=== PATIENT | female | born 1975 | race Caucasian/White ===

== ENCOUNTER 2021-03-09 13:48 | Emergency (ER) | payer MEDICARE ==
[~2021-03-09] VITALS: Ht 172.7 cm; Wt 86.4 kg
[2021-03-09 14:25] LABS: HEMATOCRIT 38.8 % (36.0-47.0); HEMOGLOBIN 12.9 g/dl (12.0-15.5); MEAN CORPUSCULAR HEMOGLOBIN 31.9 pg (27.0-33.0); MEAN CORPUSCULAR HGB CONC 33.2 g/dl (32.0-36.5); PLATELET COUNT, AUTOMATED 259 10^3/uL (150-450); RED BLOOD COUNT 4.04 10^6/uL (4.00-5.40); WHITE BLOOD COUNT 11.7 10^3/uL (4.0-10.0)
[2021-03-09 14:56] LABS: ACETAMINOPHEN LEVEL < 2.0 UG/ML (10.0-30.0); ALBUMIN 3.8 GM/DL (3.2-5.2); ALT/SGPT 41 U/L (12-78); BILIRUBIN,DIRECT 0.2 MG/DL (0.0-0.2); BILIRUBIN,TOTAL 0.5 MG/DL (0.2-1.0); BLOOD UREA NITROGEN 4 MG/DL (7-18); CALCIUM LEVEL 8.7 MG/DL (8.5-10.1); CARBON DIOXIDE LEVEL 24 MEQ/L (21-32); CHLORIDE LEVEL 107 MEQ/L (98-107); CREATININE FOR GFR 0.66 MG/DL (0.55-1.30); ETHYL ALCOHOL (ETHANOL) < 0.003 % (0.000-0.010); GLOMERULAR FILTRATION RATE > 60.0 (>58); GLUCOSE, FASTING 79 MG/DL (70-100); POTASSIUM SERUM 3.4 MEQ/L (3.5-5.1); SODIUM LEVEL 142 MEQ/L (136-145); TOTAL PROTEIN 7.1 GM/DL (6.4-8.2)
[2021-03-09 15:07] VITALS: BP 121/74
[2021-03-09 16:12] LABS: AMPHETAMINES LEVEL URINE NEGATIVE (NEGATIVE); BARBITURATES URINE NEGATIVE (NEGATIVE); BENZODIAZEPINES URINE NEGATIVE (NEGATIVE); CANNABINOIDS URINE POSITIVE (NEGATIVE); COCAINE METABOLITE URINE NEGATIVE (NEGATIVE); METHADONE URINE NEGATIVE (NEGATIVE); OPIATES URINE NEGATIVE (NEGATIVE); PHENCYCLIDINE URINE NEGATIVE (NEGATIVE)
[2021-03-09] MEDS ORDERED: POTASSIUM CHLORIDE 10 MEQ SR TABLET PO ONE (16:25)
[2021-03-09] MEDS ORDERED: BUPR150T5 PO (16:38)
[2021-03-09] MEDS ORDERED: FAMO20TA5 PO (16:38)
[2021-03-09] MEDS ORDERED: LISI10TA22 PO (16:38)
[2021-03-09] MEDS ORDERED: LEXA1TAB PO (17:36)
== END 2021-03-09 18:26 | disposition home or self-care (01) ==
LOC: M ED 13:48
DX: F32.9 Major depressive disorder, single episode, unspecified (principal); F17.200 Nicotine dependence, unspecified, uncomplicated

== ENCOUNTER 2021-04-05 07:35 | Inpatient (IN) | payer MEDICARE ==
[~2021-04-05] VITALS: Ht 172.7 cm; Wt 81.8 kg
[~2021-04-05 07:35] MED LIST: BUPR150T5 PO; FAMO20TA5 PO; LEXA1TAB PO; LISI10TA22 PO
[2021-04-05 08:22] LABS: HEMATOCRIT 38.4 % (36.0-47.0); HEMOGLOBIN 12.3 g/dl (12.0-15.5); MEAN CORPUSCULAR HEMOGLOBIN 31.1 pg (27.0-33.0); PLATELET COUNT, AUTOMATED 279 10^3/uL (150-450); RED BLOOD COUNT 3.96 10^6/uL (4.00-5.40); WHITE BLOOD COUNT 7.6 10^3/uL (4.0-10.0)
[2021-04-05 08:45] LABS: AMPHETAMINES LEVEL URINE NEGATIVE (NEGATIVE); BARBITURATES URINE NEGATIVE (NEGATIVE); BENZODIAZEPINES URINE NEGATIVE (NEGATIVE); CANNABINOIDS URINE POSITIVE (NEGATIVE); COCAINE METABOLITE URINE NEGATIVE (NEGATIVE); METHADONE URINE NEGATIVE (NEGATIVE); OPIATES URINE NEGATIVE (NEGATIVE); PHENCYCLIDINE URINE NEGATIVE (NEGATIVE)
[2021-04-05 08:52] LABS: ACETAMINOPHEN LEVEL 7.8 UG/ML (10.0-30.0); ALBUMIN 3.3 GM/DL (3.2-5.2); ALT/SGPT 44 U/L (12-78); BILIRUBIN,DIRECT < 0.1 MG/DL (0.0-0.2); BILIRUBIN,TOTAL 0.2 MG/DL (0.2-1.0); BLOOD UREA NITROGEN 3 MG/DL (7-18); CALCIUM LEVEL 8.5 MG/DL (8.5-10.1); CARBON DIOXIDE LEVEL 27 MEQ/L (21-32); CHLORIDE LEVEL 106 MEQ/L (98-107); CREATININE FOR GFR 0.48 MG/DL (0.55-1.30); ETHYL ALCOHOL (ETHANOL) < 0.003 % (0.000-0.010); GLOMERULAR FILTRATION RATE > 60.0 (>58); GLUCOSE, FASTING 88 MG/DL (70-100); POTASSIUM SERUM 3.8 MEQ/L (3.5-5.1); SODIUM LEVEL 143 MEQ/L (136-145); TOTAL PROTEIN 6.7 GM/DL (6.4-8.2)
[2021-04-05 08:59] LABS: HCG, SERUM QUALITATIVE NEGATIVE (NEGATIVE)
[2021-04-05] MEDS ORDERED: HOME MED LIST COMPLETE! XX SCH (10:20)
[2021-04-05] MEDS ORDERED: ACETAMINOPHEN TAB 650MG DOSE (2X325MG) PO ONE (11:30)
[2021-04-05] MEDS ORDERED: LORazepam 2 MG TAB PO STA (11:51)
[2021-04-05 13:48] LABS: RSV AMPLIFICATION NEGATIVE (NEGATIVE)
[2021-04-06] MEDS ORDERED: ACETAMINOPHEN TAB 650MG DOSE (2X325MG) PO ONE ×2 (05:10→18:50)
[2021-04-06] MEDS ORDERED: NICOTINE 21MG/24HR 1 EA TRANSDERMAL TD ONE ×2 (09:30→21:15)
[2021-04-07] MEDS ORDERED: NICOTINE 21MG/24HR 1 EA TRANSDERMAL TD ONE (09:25)
[2021-04-07 12:13] LABS: RSV AMPLIFICATION NEGATIVE (NEGATIVE)
[2021-04-07] MEDS ORDERED: MOM 30ML SUSPENSION UDC PO PRN (12:55)
[2021-04-07] MEDS ORDERED: LORazepam 1 MG TAB PO PRN (12:55)
[2021-04-07] MEDS ORDERED: traZODone 50 MG TAB PO PRN (12:55)
[2021-04-07 15:13] VITALS: BP 152/89
[2021-04-07] MEDS: ACETAMINOPHEN TAB 650MG DOSE (2X325MG) PO PRN (21:52)
[2021-04-08 06:00] VITALS: BP 141/84
[2021-04-08] MEDS ORDERED: diphenhydrAMINE 25MG CAP PO SCH (08:50)
--- NOTE | 2021-04-08 09:08 | MHHPEPDOC ---
General Date Of Admission: Apr 07, 2021 Legal Status: 9.39 Chief Complaint ". I was just getting scared and that is why I called the 911 History of Present Illness HISTORY OF THE PRESENT ILLNESS: Patient is a 45 -year-old , female, who [has a history of outpatient treatment for depression but no previous inpatient admission. She was brought to emergency room by police responding to her repeated calls to 911 without any clear emergency. Police found her to be very disorganized pressured and not making any sense and brought to emergency room on Wednesday night and she was admitted on 939 status. The patient apparently called police emergency line repeatedly with the various complaints but the police did not find any evidence of emergency. On examination patient stated that she does not remember calling the police but later admits that she was just feeling scared without any reasons. Patient did admit that she has gone through separation and her moved out about a month ago and she recently stopped taking her antidepressant medicine because she was feeling much better without it. She denies any hallucination or delusional thinking but admits that she sometimes feels scared but during the day she is full of energy and does not seem to need any sleep lately. She has been suffering from degenerative joint disease but lately has been taking CBD oil regularly and is feeling much better and felt like she has all the energy in the word. She denies feeling any grandiosity denies any hallucination and denies any depressed mood but instead reporting elevated mood high energy decreased need for sleep and occasional paranoid fear. She has no history of psychosis denies any history of suicidal attempt but has been on antidepressant medicine since 2010 prescribed by her primary care doctor which she stopped in December.]. Psychiatric Review of Systems Depression (2 or more weeks): denies Natalee (4 or more days of): irritable/elevated mood, expansive mood, decreased need for sleep, talkativity, pressured, flight of ideas, distractibility Psychosis: paranoia PTSD: denies Anxiety: denies Past Psychiatric History Previous Psychiatric Diagnosis: . Depression Previous Psychiatric Admissions: . No previous inpatient treatment Suicide Attempts: . No history of suicidal attempt Psychiatric Follow-up: . Had a psychiatric evaluation in 2010 when she was filing petition for her daughter Psychiatric medications: . Has been on Wellbutrin and Lexapro stopped taking it in December of this year Past Medical History Medical Problems Has chronic degenerative joint disease Head Injury: No Seizures: No Hospitalizations: No Surgeries: No Family Medical/Psychiatric HX Medical Problems Father of esophageal cancer mother has no medical history is very little contact Psychiatric Disorders: No Addiction: Yes (Her 24-year-old daughter has extensive substance abuse history) Suicide Attemps/Completions: No Addiction History denies, other (Has been smoking pot daily also uses CBD oil daily) Social History Childhood: . Born in [facility] uneventful childhood Abuse/Trauma:[Denies any history of trauma]. Current Living Situation: [Lives in a rented a house along after her moved out in November 2020]. Education: [High school]. Employment: Used to work at [employer] but currently on SSD. Social Support: [Neighbors]. Legal: [Denies any legal history]. Marital: [Was for 24 years has 2 daughters ages 24 and 20 started the divorce proceeding in 2019 and her moved out and November or December of this year]. Mental Status Examination General Appearance: appears stated age Build: average Demeanor: average, other ([place] friendly and easily engaging) Eye Contact: average Activity: average Behavior: cooperative, hyperactive, other Speech: clear, rapid, pressured, other ([place] productive and slightly flighty) Mood: euphoric, elevated Mood Reports feeling great since December of this year Thought Process: logical/linear, flight of ideas, racing (Moderately pressured easily distracted) Thought Content (Delusions): denies SI, HI, AVH, paranoia (Occasionally feels scared and paranoid) Thought Content (Other): coherent Thought Content (Aggressive): none reported Perception (Hallucinations): none reported Perception (Other): none reported Cognition (Impairment of): none reported Cognition(Intelligence Est.): average Oriented: Awake, Alert, Oriented times three Insight: poor Judgment: Fair Diagnoses Bipolar disorder manic A-FIB/CHADSVASC A-FIB History Current/History of A-Fib/PAF?: No Current PO Anticoag Therapy: No Age/Risk Factor Scoring CHADSVASC: CHADSVASC Response (Comments) Value Gender Risk Factor Female 1 Hx of CHF No 0 Hx of HTN No 0 Hx of Stroke/TIA/or VTE No 0 Hx of Diabetes No 0 Hx of Vascular Disease No 0 Total 1 Treatment Treatment ordered: NONE Assessment Patient appears to have a manic episode with a significant psychomotor agitation episodes of paranoia and elevated mood and decreased to sleep. She is currently not acutely delusional but appears to have been very paranoid before admission. We will try to stabilize with risperidone at bedtime and supportive therapy Initial Treatment Plan 1. Patient was admitted on a 9.39 status. 2. Complete history was obtained. 3. With patients permission, family will be contacted and database will be expanded. 4. Patients medication regimen will be reviewed and changed accordingly. 5. Patient will be provided with protected environment. 6. Patient will be treated with individual, group, and milieu therapies. 7. Patient will receive supportive psych-education. 8. Discharge planning will commence immediately. 9. Outpatient follow-up treatment will be strongly recommended. 10. The initial treatment plan will focus initially on: * Depression. * Risk for suicide. ESTIMATED LENGTH OF STAY: 3-5 DAYS. TIME SPENT COUNSELING AND COORDINATING INITIAL CARE: 45 minutes. Tobacco Cessation Screen If Patient is a Smoker Non-smoker N/A-No Antipsychotics Vital Signs Vital Signs Date Time Temp Pulse Resp B/P (MAP) Pulse Ox O2 Delivery O2 Flow Rate FiO2 04/08/21 08:12 Room Air 04/08/21 06:00 98.4 72 16 141/84 (103) 95 Laboratory Data 24H Labs Laboratory Tests 2 04/07/21 11:29: Coronavirus (COVID-19)(PCR) NEGATIVE, Influenza Type A (RT-PCR) NEGATIVE, Influenza Type B (RT-PCR) NEGATIVE, Respiratory Syncytial Virus (PCR) NEGATIVE Medications No Active Prescriptions or Reported Meds Allergies Coded Allergies: Sulfa (Sulfonamide Antibiotics) (Verified Allergy, Unknown, Rash, 04/07/21) BLANCO DOWD M.D. Apr 08, 2021 09:08
[2021-04-08] MEDS: NICOTINE 21MG/24HR 1 EA TRANSDERMAL TD SCH (10:16)
[2021-04-08 17:07] VITALS: BP 142/82
[2021-04-08] MEDS: ACETAMINOPHEN TAB 650MG DOSE (2X325MG) PO PRN (20:44)
[2021-04-08] MEDS ORDERED: risperiDONE 2 MG TAB PO SCH (21:00)
[2021-04-09] VITALS (8 sets, daily range): BP systolic 126–160; BP diastolic 77–88
[2021-04-09] MEDS ORDERED: haloperidoL 5 MG TAB PO PRN (08:10)
[2021-04-09] MEDS ORDERED: diphenhydrAMINE 50MG CAP PO PRN (08:10)
[2021-04-09] MEDS: LORazepam 1 MG TAB PO SCH ×3 (09:00→20:32)
[2021-04-09] MEDS ORDERED: NICOTINE 21MG/24HR 1 EA TRANSDERMAL TD SCH (09:00)
[2021-04-09] MEDS: risperiDONE 2 MG TAB PO SCH ×2 (09:00→20:32)
[2021-04-09] MEDS ORDERED: HALOPERIDOL 5MG/ML VIAL (J1630 PER 1) IM STA (09:15)
[2021-04-09] MEDS ORDERED: diphenhydrAMINE 50MG/ML VIAL (J1200) IM STA (09:15)
[2021-04-09] MEDS ORDERED: LORazepam 2 MG/ML VIAL IM STA (09:15)
[2021-04-09] MEDS: NICOTINE 21MG/24HR 1 EA TRANSDERMAL TD SCH (10:06)
--- NOTE | 2021-04-09 10:19 | MHIPNPDOC ---
[facility] Progress Note Progress Note DATE OF SERVICE: 04/09/21 Patient is showing more bizarre and agitated behavior. She did not take prescribed risperidone last night and apparently did not sleep very well. She has been acting quite bizarre this morning and was noted to be laughing and talking to herself. When seen by this MD patient claims that she is feeling good and happy and very evasive and superficial but later becoming more agitated and [id number] and required extra Haldol and Ativan to control her agitation. She appears actively hallucinating and remains extremely labile and agitated and appears to be grossly manic with psychotic symptoms. HISTORY:. VITAL SIGNS: See below. NEW TEST RESULTS:. CURRENT MEDICATIONS: See below. MENTAL STATUS EXAMINATION: Patient is a 45-year old female, who is agitated. Speech: Is pressured. Language skills are poor. Thought processes including: Flighty. Thought content: Feeling happy. Abstract reasoning, and computation: Poor. Description of associations: Disorganized. Description of abnormal or psychotic thoughts: Appears actively hallucinating and paranoid. Judgment: Poor. Insight: Very . poor. Orientation: Appears oriented. Recent and remote memory: No gross impairment. Attention span and concentration: Poor. Language:. Fund of knowledge:. Mood: Happy. Affect: Elevated and agitated. DIAGNOSES: 1.. Bipolar disorder manic with psychosis 2.. 3.. ASSESSMENT: Grossly manic and psychotic MANAGEMENT PLAN: Increase risperidone Ativan 1 mg 3 times daily for agitation consider Depakote or lithium. TIME SPENT: 20 minutes. Vital Signs Vital Signs Date Time Temp Pulse Resp B/P (MAP) Pulse Ox O2 Delivery O2 Flow Rate FiO2 04/09/21 06:27 98.0 85 18 160/87 (111) 99 Room Air Current Medications Current Medications Medications (Trade) Dose Ordered Sig/Yola Route PRN Reason Start Time Stop Time Status Last Admin Dose Admin Acetaminophen (Tylenol Tab) 650 mg Q6HP PRN PO PAIN 04/06/21 16:30 04/08/21 20:44 Al Hydrox/Mg Hydrox/Simethicone (Mylanta) 30 ml Q4HP PRN PO HEARTBURN/INDIGESTION 04/07/21 12:55 Diphenhydramine HCl (Benadryl) 25 mg QHSP PO 04/08/21 08:50 04/09/21 08:27 DC Diphenhydramine HCl (Benadryl) 50 mg Q6HP PRN PO ANXIETY/AGITATION 04/09/21 08:10 Diphenhydramine HCl (Benadryl) 50 mg STAT STAT IM 04/09/21 09:15 04/09/21 09:18 DC 04/09/21 09:27 Haloperidol (Haldol) 5 mg Q6HP PRN PO AGITATION 04/09/21 08:10 Haloperidol (Haldol) 5 mg STAT STAT IM 04/09/21 09:15 04/09/21 09:18 DC 04/09/21 09:27 Home Med (Med Rec Complete!) ASDIRECTED XX 04/05/21 10:20 04/05/21 10:21 DC Ibuprofen (Advil) 400 mg Q6HP PRN PO MODERATE PAIN (PS 5-7) 04/07/21 12:55 Lorazepam (Ativan) 1 mg Q6HP PRN PO ANXIETY/AGITATION 04/07/21 12:55 Lorazepam (Ativan) 1 mg STAT STAT IM 04/09/21 09:15 04/09/21 09:18 DC 04/09/21 09:27 Lorazepam (Ativan) 2 mg STAT STAT PO 04/05/21 11:51 04/05/21 11:52 DC Magnesium Hydroxide (Milk Of Magnesia) 30 ml DAILYPRN PRN PO CONSTIPATION 04/07/21 12:55 Nicotine (Nicoderm Cq 21mg) 1 patch DAILY TD 04/08/21 09:00 04/09/21 10:06 Nicotine (Nicoderm Cq 21mg) 1 patch DAILY TD 04/09/21 09:00 04/08/21 10:10 DC Risperidone (RisperDAL) 2 mg BID PO 04/09/21 21:00 UNV Risperidone (RisperDAL) 2 mg QHS PO 04/08/21 21:00 04/09/21 10:13 DC Trazodone HCl (Desyrel) 50 mg QHSP PRN PO INSOMNIA 04/07/21 12:55 Cancel Allergies Coded Allergies: Sulfa (Sulfonamide Antibiotics) (Verified Allergy, Unknown, Rash, 04/07/21) BLANCO DOWD M.D. Apr 09, 2021 10:19
--- NOTE | 2021-04-09 14:20 | HPEPDOC ---
General Date of Admission Apr 07, 2021 at 12:53 Date of Service: Apr 09, 2021 Chief Complaint The patient is a 45-year-old female admitted with a reason for visit of Psychotic Disorder. History of Present Illness 45-year-old female past medical history of orbit obesity status post gastric bypass surgery, depression was admitted to [facility] for unspecified psychotic disorder. She has been examined here today for medical history and physical. This morning she was very agitated and had a code 25 called requiring restraints both physical and chemical but now she is off restraints and alert and cooperative. She denies any complaints today. Home Medications No Active Prescriptions or Reported Meds Allergies Coded Allergies: Sulfa (Sulfonamide Antibiotics) (Verified Allergy, Unknown, Rash, 04/07/21) Past Medical History Medical History Morbid obesity status post gastric bypass surgery in 2018 weight loss of about 100 pounds History of hypertension not on any medications at present Depression Family History Significant Family History: Cancer (Father had esophageal cancer), Diabetes, Heart disease Social History * Smoker: current smoker Alcohol: rarely Drugs: marijuana A-FIB/CHADSVASC A-FIB History Current/History of A-Fib/PAF?: No Age/Risk Factor Scoring CHADSVASC: CHADSVASC Response (Comments) Value Gender Risk Factor Female 1 Hx of CHF No 0 Hx of HTN No 0 Hx of Stroke/TIA/or VTE No 0 Hx of Diabetes No 0 Hx of Vascular Disease No 0 Total 1 Review of Systems Constitutional: Denies: Chills, Fever, Night Sweats Eyes: Denies: Pain, Vision change ENT: Denies: Head Aches, Ear Pain, Dysphagia Skin: Denies: Rash, Lesions, Breakdown Pulmonary: Denies: Dyspnea, Cough Cardiovascular: Denies: Chest Pain, Palpitations, Orthopnea, Paroxysmal Noc. Dyspnea, Lt Headedness Gastrointestinal: Denies: Nausea, Vomiting, Abdominal Pain, Diarrhea Genitourinary: Denies: Dysuria, Frequency, Incontinence, Retention Musculoskeletal: Denies: Neck Pain, Back Pain, Joint Pain, Muscle Pain, Spasms Physical Examination General Exam: Positive: Alert, Cooperative, No Acute Distress Eye Exam: Positive: PERRLA, Conjunctiva & lids normal, EOMI; Negative: Sclera icteric Neck Exam: Positive: Supple; Negative: JVD, thyromegaly Chest Exam: Positive: Clear to auscultation, Normal air movement Heart Exam: Positive: Rate Normal, Regular Rhythm, Normal S1, Normal S2; Negative: Murmurs, Rubs Abdomen Exam: Positive: Normal bowel sounds, Soft; Negative: Tenderness, Hepatospenomegaly Extremity Exam: Positive: Normal pulses; Negative: Clubbing, Cyanosis, Edema Vital Signs Vital Signs Date Time Temp Pulse Resp B/P (MAP) Pulse Ox O2 Delivery O2 Flow Rate FiO2 04/09/21 10:30 97.0 59 14 130/82 97 Room Air Assessment/Plan 43-year-old female past medical history of orbit obesity status post gastric bypass surgery, depression was admitted to [facility] for unspecified psychotic disorder. She has been examined here today for medical history and physical. Acute psychosis/depression As per psychiatry History of hypertension resolved after weight loss History of morbid obesity status post gastric bypass surgery No active medical problems at this time Plan / VTE VTE Prophylaxis Ordered?: No (Fully ambulatory) JANES BENSON MD Apr 09, 2021 14:20
[2021-04-10 05:44] VITALS: BP 113/67
[2021-04-10 06:00] VITALS: BP 113/67
[2021-04-10] MEDS: NICOTINE 21MG/24HR 1 EA TRANSDERMAL TD SCH (08:09)
[2021-04-10] MEDS: risperiDONE 2 MG TAB PO SCH ×2 (09:00→19:55)
[2021-04-10] MEDS: LORazepam 1 MG TAB PO SCH ×3 (09:00→19:55)
--- NOTE | 2021-04-10 10:38 | MHIPNPDOC ---
[facility] Progress Note Progress Note DATE OF SERVICE: 04/10/21 After promising that she will cooperate the patient again refused all her medications. She remains grossly manic with inappropriate smiles while superficially denying any problem. She remains hyperactive inappropriate smiles with no insight and has not been sleeping well. She is again telling the MD that she will take the medicine but immediately afterwards she refused morning medications. We will observe with the supportive therapy and education to help her cooperate with the treatment and utilize medications as needed if her behavi or is out of control. HISTORY:. VITAL SIGNS: See below. NEW TEST RESULTS:. CURRENT MEDICATIONS: See below. MENTAL STATUS EXAMINATION: Patient is a 45-year old female, who is superficial and elevated. Speech: Is pressured. Language skills are not spontaneous and very superficial. Thought processes including: Flighty. Thought content: Reports feeling good and great. Abstract reasoning, and computation: Poor. Description of associations: Flighty. Description of abnormal or psychotic thoughts: Appears actively hallucinating. Judgment: Poor. Insight: Very. poor. Orientation: Appears oriented. Recent and remote memory: Unimpaired. Attention span and concentration: Poor. Language:. Fund of knowledge:. Mood: Reports feeling great. Affect: Elevated and labile. DIAGNOSES: 1.. Bipolar disorder type I manic with psychosis 2.. 3.. ASSESSMENT: Not cooperating with the treatment remains manic MANAGEMENT PLAN: Supportive therapy and education for the need for medications. TIME SPENT: 20 minutes. Vital Signs Vital Signs Date Time Temp Pulse Resp B/P (MAP) Pulse Ox O2 Delivery O2 Flow Rate FiO2 04/10/21 05:44 97.2 79 16 113/67 (82) 100 Room Air Current Medications Current Medications Medications (Trade) Dose Ordered Sig/Yola Route PRN Reason Start Time Stop Time Status Last Admin Dose Admin Acetaminophen (Tylenol Tab) 650 mg Q6HP PRN PO PAIN 04/06/21 16:30 04/09/21 10:28 DC 04/08/21 20:44 Al Hydrox/Mg Hydrox/Simethicone (Mylanta) 30 ml Q4HP PRN PO HEARTBURN/INDIGESTION 04/07/21 12:55 Diphenhydramine HCl (Benadryl) 25 mg QHSP PO 04/08/21 08:50 04/09/21 08:27 DC Diphenhydramine HCl (Benadryl) 50 mg Q6HP PRN PO ANXIETY/AGITATION 04/09/21 08:10 Diphenhydramine HCl (Benadryl) 50 mg STAT STAT IM 04/09/21 09:15 04/09/21 09:18 DC 04/09/21 09:27 Haloperidol (Haldol) 5 mg Q6HP PRN PO AGITATION 04/09/21 08:10 Haloperidol (Haldol) 5 mg STAT STAT IM 04/09/21 09:15 04/09/21 09:18 DC 04/09/21 09:27 Home Med (Med Rec Complete!) ASDIRECTED XX 04/05/21 10:20 04/05/21 10:21 DC Ibuprofen (Advil) 400 mg Q6HP PRN PO MODERATE PAIN (PS 5-7) 04/07/21 12:55 Lorazepam (Ativan) 1 mg Q6HP PRN PO ANXIETY/AGITATION 04/07/21 12:55 Lorazepam (Ativan) 1 mg STAT STAT IM 04/09/21 09:15 04/09/21 09:18 DC 04/09/21 09:27 Lorazepam (Ativan) 1 mg TID PO 04/09/21 09:00 Lorazepam (Ativan) 2 mg STAT STAT PO 04/05/21 11:51 04/05/21 11:52 DC Magnesium Hydroxide (Milk Of Magnesia) 30 ml DAILYPRN PRN PO CONSTIPATION 04/07/21 12:55 Nicotine (Nicoderm Cq 21mg) 1 patch DAILY TD 04/08/21 09:00 04/10/21 08:09 Nicotine (Nicoderm Cq 21mg) 1 patch DAILY TD 04/09/21 09:00 04/08/21 10:10 DC Risperidone (RisperDAL) 2 mg BID PO 04/09/21 09:00 Risperidone (RisperDAL) 2 mg QHS PO 04/08/21 21:00 04/09/21 10:13 DC Trazodone HCl (Desyrel) 50 mg QHSP PRN PO INSOMNIA 04/07/21 12:55 Cancel Allergies Coded Allergies: Sulfa (Sulfonamide Antibiotics) (Verified Allergy, Unknown, Rash, 04/07/21) BLANCO DOWD M.D. Apr 10, 2021 10:38
[2021-04-10] MEDS: IBUPROFEN 400MG TAB PO PRN (14:35)
[2021-04-10 18:41] VITALS: BP 156/88
[2021-04-11 05:49] VITALS: BP 132/79
[2021-04-11] MEDS: NICOTINE 21MG/24HR 1 EA TRANSDERMAL TD SCH (08:03)
[2021-04-11] MEDS: LORazepam 1 MG TAB PO SCH ×3 (09:00→22:22)
--- NOTE | 2021-04-11 10:30 | MHIPNPDOC ---
[facility] Progress Note Progress Note DATE OF SERVICE: 04/11/21 The patient cooperated with the bedtime dose of her medications and apparently slept very well. This morning she is alert awake and verbally productive is in better control and contact. She claims that she will fully cooperate with the medications although she feels great and she does not feel she needs any medications. When asked about the reports that her ex- tried to call and left a message that he has obtained order of protection against her the patient reports that she does not think there is any reason for that and she will give for consent for the social work to talk to her ex-. She has not been as bizarre or agitated since yesterday and in better control in no acute physical distress. We will change her medicine to bedtime risperidone 4 mg to try to stabilize HISTORY:. VITAL SIGNS: See below. NEW TEST RESULTS:. CURRENT MEDICATIONS: See below. MENTAL STATUS EXAMINATION: Patient is a 45-year old female, who is in no acute distress. Speech: Is somewhat pressured but relevant. Language skills are good. Thought processes including: Relevant and productive. Thought content: Very superficial and denies any problems except that she feels good. Abstract reasoning, and computation: Fair. Description of associations: Pressured but organized.. Description of abnormal or psychotic thoughts: Superficially denies any problem. Judgment: Poor. Insight: Poor. Orientation: Oriented. Recent and remote memory: Unimpaired. Attention span and concentration: Poor. Language:. Fund of knowledge:. Mood: Elevated reports feeling good. Affect: Inappropriate. DIAGNOSES: 1.. Bipolar disorder manic 2.. 3.. ASSESSMENT: Not as agitated MANAGEMENT PLAN: Knee stabilization with medications and supportive therapy. TIME SPENT: Minutes. Vital Signs Vital Signs Date Time Temp Pulse Resp B/P (MAP) Pulse Ox O2 Delivery O2 Flow Rate FiO2 04/11/21 05:49 97.4 80 16 132/79 (96) 97 Room Air Current Medications Current Medications Medications (Trade) Dose Ordered Sig/Yola Route PRN Reason Start Time Stop Time Status Last Admin Dose Admin Acetaminophen (Tylenol Tab) 650 mg Q6HP PRN PO PAIN 04/06/21 16:30 04/09/21 10:28 DC 04/08/21 20:44 Al Hydrox/Mg Hydrox/Simethicone (Mylanta) 30 ml Q4HP PRN PO HEARTBURN/INDIGESTION 04/07/21 12:55 Diphenhydramine HCl (Benadryl) 25 mg QHSP PO 04/08/21 08:50 04/09/21 08:27 DC Diphenhydramine HCl (Benadryl) 50 mg Q6HP PRN PO ANXIETY/AGITATION 04/09/21 08:10 Diphenhydramine HCl (Benadryl) 50 mg STAT STAT IM 04/09/21 09:15 04/09/21 09:18 DC 04/09/21 09:27 Haloperidol (Haldol) 5 mg Q6HP PRN PO AGITATION 04/09/21 08:10 Haloperidol (Haldol) 5 mg STAT STAT IM 04/09/21 09:15 04/09/21 09:18 DC 04/09/21 09:27 Home Med (Med Rec Complete!) ASDIRECTED XX 04/05/21 10:20 04/05/21 10:21 DC Ibuprofen (Advil) 400 mg Q6HP PRN PO MODERATE PAIN (PS 5-7) 04/07/21 12:55 04/10/21 14:35 Lorazepam (Ativan) 1 mg Q6HP PRN PO ANXIETY/AGITATION 04/07/21 12:55 Lorazepam (Ativan) 1 mg STAT STAT IM 04/09/21 09:15 04/09/21 09:18 DC 04/09/21 09:27 Lorazepam (Ativan) 1 mg TID PO 04/09/21 09:00 04/10/21 19:55 Lorazepam (Ativan) 2 mg STAT STAT PO 04/05/21 11:51 04/05/21 11:52 DC Magnesium Hydroxide (Milk Of Magnesia) 30 ml DAILYPRN PRN PO CONSTIPATION 04/07/21 12:55 Nicotine (Nicoderm Cq 21mg) 1 patch DAILY TD 04/08/21 09:00 04/11/21 08:03 Nicotine (Nicoderm Cq 21mg) 1 patch DAILY TD 04/09/21 09:00 04/08/21 10:10 DC Risperidone (RisperDAL) 2 mg BID PO 04/09/21 09:00 04/10/21 19:55 Risperidone (RisperDAL) 2 mg QHS PO 04/08/21 21:00 04/09/21 10:13 DC Trazodone HCl (Desyrel) 50 mg QHSP PRN PO INSOMNIA 04/07/21 12:55 Cancel Allergies Coded Allergies: Sulfa (Sulfonamide Antibiotics) (Verified Allergy, Unknown, Rash, 04/07/21) BLANCO DOWD M.D. Apr 11, 2021 10:30
[2021-04-11] MEDS: IBUPROFEN 400MG TAB PO PRN (14:55)
[2021-04-11 17:22] VITALS: BP 146/80
[2021-04-11] MEDS: risperiDONE 2 MG TAB PO SCH (22:22)
[2021-04-12 06:59] VITALS: BP 115/74
[2021-04-12] MEDS: NICOTINE 21MG/24HR 1 EA TRANSDERMAL TD SCH (08:05)
[2021-04-12] MEDS: LORazepam 1 MG TAB PO SCH ×3 (08:07→21:09)
[2021-04-12] MEDS: IBUPROFEN 400MG TAB PO PRN (09:14)
[2021-04-12 16:09] VITALS: BP 152/84
[2021-04-12] MEDS: risperiDONE 2 MG TAB PO SCH (21:10)
[2021-04-13 05:45] VITALS: BP 142/65
[2021-04-13] MEDS: NICOTINE 21MG/24HR 1 EA TRANSDERMAL TD SCH (08:35)
[2021-04-13] MEDS: LORazepam 1 MG TAB PO SCH ×3 (08:36→23:02)
[2021-04-13] MEDS: risperiDONE 2 MG TAB PO SCH ×2 (21:00→23:03)
[2021-04-14 06:12] VITALS: BP 124/69
[2021-04-14] MEDS: LORazepam 1 MG TAB PO SCH (09:00)
[2021-04-14] MEDS: NICOTINE 21MG/24HR 1 EA TRANSDERMAL TD SCH (09:02)
--- NOTE | 2021-04-14 09:52 | MHIPNPDOC ---
[facility] Progress Note Progress Note DATE OF SERVICE: 04/14/21 The patient has been cooperating with her risperidone and is showing moderate improvement. She does not want to take Depakote or Ativan but is willing to take risperidone even though she does not believe she is manic or paranoid. She slept well has no complaint of side effect and her behavior has been in much better controlled and did not require any extra medications. She is still somewhat pressured and totally lacking any insight and claims that she was just minding her own business and the police brought her here illegally. HISTORY:. VITAL SIGNS: See below. NEW TEST RESULTS:. CURRENT MEDICATIONS: See below. MENTAL STATUS EXAMINATION: Patient is a 45-year old female, who is in no acute distress. Speech: Is pressured but coherent. Language skills are good. Thought processes including: Relevant and coherent. Thought content: Denying any problems. Abstract reasoning, and computation: Fair. Description of associations: Better organized. Description of abnormal or psychotic thoughts: Again denies any problems but was very paranoid and hallucinating which seems to be decreasing. Judgment: Poor. Insight: Poor. Orientation: Well oriented. Recent and remote memory: Appears unimpaired. Attention span and concentration: Poor. Language:. Fund of knowledge:. Mood: Reports feeling good. Affect: Intense and elevated. DIAGNOSES: 1.. Bipolar disorder manic 2.. 3.. ASSESSMENT: Showing slight improvement MANAGEMENT PLAN: Continue risperidone 4 mg and add Benadryl 50 mg at bedtime for possible side effects and sleep. TIME SPENT: 20 minutes. Vital Signs Vital Signs Date Time Temp Pulse Resp B/P (MAP) Pulse Ox O2 Delivery O2 Flow Rate FiO2 04/14/21 06:12 97.1 97 18 124/69 (87) 99 Room Air Current Medications Current Medications Medications (Trade) Dose Ordered Sig/Yola Route PRN Reason Start Time Stop Time Status Last Admin Dose Admin Acetaminophen (Tylenol Tab) 650 mg Q6HP PRN PO PAIN 04/06/21 16:30 04/09/21 10:28 DC 04/08/21 20:44 Al Hydrox/Mg Hydrox/Simethicone (Mylanta) 30 ml Q4HP PRN PO HEARTBURN/INDIGESTION 04/07/21 12:55 Diphenhydramine HCl (Benadryl) 25 mg QHSP PO 04/08/21 08:50 04/09/21 08:27 DC Diphenhydramine HCl (Benadryl) 50 mg Q6HP PRN PO ANXIETY/AGITATION 04/09/21 08:10 Diphenhydramine HCl (Benadryl) 50 mg STAT STAT IM 04/09/21 09:15 04/09/21 09:18 DC 04/09/21 09:27 Haloperidol (Haldol) 5 mg Q6HP PRN PO AGITATION 04/09/21 08:10 Haloperidol (Haldol) 5 mg STAT STAT IM 04/09/21 09:15 04/09/21 09:18 DC 04/09/21 09:27 Home Med (Med Rec Complete!) ASDIRECTED XX 04/05/21 10:20 04/05/21 10:21 DC Ibuprofen (Advil) 400 mg Q6HP PRN PO MODERATE PAIN (PS 5-7) 04/07/21 12:55 04/12/21 09:14 Lorazepam (Ativan) 1 mg Q6HP PRN PO ANXIETY/AGITATION 04/07/21 12:55 Lorazepam (Ativan) 1 mg STAT STAT IM 04/09/21 09:15 04/09/21 09:18 DC 04/09/21 09:27 Lorazepam (Ativan) 1 mg TID PO 04/09/21 09:00 04/14/21 09:47 DC 04/13/21 23:02 Lorazepam (Ativan) 2 mg STAT STAT PO 04/05/21 11:51 04/05/21 11:52 DC Magnesium Hydroxide (Milk Of Magnesia) 30 ml DAILYPRN PRN PO CONSTIPATION 04/07/21 12:55 Miscellaneous (Unresolved Clarification Entry) SEE LABEL COMMENTS DAILY XX 04/13/21 09:00 Nicotine (Nicoderm Cq 21mg) 1 patch DAILY TD 04/08/21 09:00 04/14/21 09:02 Nicotine (Nicoderm Cq 21mg) 1 patch DAILY TD 04/09/21 09:00 04/08/21 10:10 DC Risperidone (RisperDAL) 2 mg BID PO 04/09/21 09:00 04/11/21 10:25 DC 04/10/21 19:55 Risperidone (RisperDAL) 2 mg QHS PO 04/08/21 21:00 04/09/21 10:13 DC Risperidone (RisperDAL) 4 mg QHS PO 04/11/21 21:00 04/13/21 23:03 Trazodone HCl (Desyrel) 50 mg QHSP PRN PO INSOMNIA 04/07/21 12:55 Cancel Allergies Coded Allergies: Sulfa (Sulfonamide Antibiotics) (Verified Allergy, Unknown, Rash, 04/07/21) BLANCO DOWD M.D. Apr 14, 2021 09:52
[2021-04-14 18:59] VITALS: BP 137/80
[2021-04-14] MEDS: diphenhydrAMINE 50MG CAP PO SCH (23:13)
[2021-04-14] MEDS: risperiDONE 2 MG TAB PO SCH (23:14)
[2021-04-15 06:29] VITALS: BP 155/86
[2021-04-15] MEDS: NICOTINE 21MG/24HR 1 EA TRANSDERMAL TD SCH (08:05)
--- NOTE | 2021-04-15 11:30 | MHIPNPDOC ---
[facility] Progress Note Progress Note DATE OF SERVICE: 04/15/21 Patient is fully cooperated with the risperidone and Benadryl reports no side effect and slept very well.. Her behavior is much more appropriate now has not shown any acting out behavior. She is still denying any psychiatric problems and shows very little insight and claims that she can go back to her place. The child welfare social worker reports that her has obtained a restraining order and she may not be able to return to her residence so we will need to investigate to find out if we have any safe housing for her. Continue with the home medications and supportive therapy in the meantime. HISTORY:. VITAL SIGNS: See below. NEW TEST RESULTS:. CURRENT MEDICATIONS: See below. MENTAL STATUS EXAMINATION: Patient is a 45-year old female, who is in good control. Speech: Is slightly pressured but rational. Language skills are good. Thought processes including: Relevant and coherent. Thought content: She is denying any problems. Abstract reasoning, and computation: Fair. Description of associations: Organized. Description of abnormal or psychotic thoughts: Patient apparently was quite manic and was hallucinating but denies any now. Judgment: Poor. Insight: poor]. Orientation: Oriented. Recent and remote memory: Unimpaired. Attention span and concentration: Fair. Language:. Fund of knowledge:. Mood: Moderately anxious. Affect: Superficial but appropriate. DIAGNOSES: 1.. Bipolar disorder manic 2.. 3.. ASSESSMENT: Cooperating with medications and showing improvement MANAGEMENT PLAN: Patient is still lacking any insight and we need to develop a safe discharge plan. TIME SPENT: 20 minutes. Vital Signs Vital Signs Date Time Temp Pulse Resp B/P (MAP) Pulse Ox O2 Delivery O2 Flow Rate FiO2 04/15/21 06:29 97.6 86 18 155/86 (109) 98 Room Air Current Medications Current Medications Medications (Trade) Dose Ordered Sig/Yola Route PRN Reason Start Time Stop Time Status Last Admin Dose Admin Acetaminophen (Tylenol Tab) 650 mg Q6HP PRN PO PAIN 04/06/21 16:30 04/09/21 10:28 DC 04/08/21 20:44 Al Hydrox/Mg Hydrox/Simethicone (Mylanta) 30 ml Q4HP PRN PO HEARTBURN/INDIGESTION 04/07/21 12:55 Diphenhydramine HCl (Benadryl) 25 mg QHSP PO 04/08/21 08:50 04/09/21 08:27 DC Diphenhydramine HCl (Benadryl) 50 mg Q6HP PRN PO ANXIETY/AGITATION 04/09/21 08:10 Diphenhydramine HCl (Benadryl) 50 mg QHS PO 04/14/21 21:00 04/14/21 23:13 Diphenhydramine HCl (Benadryl) 50 mg STAT STAT IM 04/09/21 09:15 04/09/21 09:18 DC 04/09/21 09:27 Haloperidol (Haldol) 5 mg Q6HP PRN PO AGITATION 04/09/21 08:10 Haloperidol (Haldol) 5 mg STAT STAT IM 04/09/21 09:15 04/09/21 09:18 DC 04/09/21 09:27 Home Med (Med Rec Complete!) ASDIRECTED XX 04/05/21 10:20 04/05/21 10:21 DC Ibuprofen (Advil) 400 mg Q6HP PRN PO MODERATE PAIN (PS 5-7) 04/07/21 12:55 04/12/21 09:14 Lorazepam (Ativan) 1 mg Q6HP PRN PO ANXIETY/AGITATION 04/07/21 12:55 Lorazepam (Ativan) 1 mg STAT STAT IM 04/09/21 09:15 04/09/21 09:18 DC 04/09/21 09:27 Lorazepam (Ativan) 1 mg TID PO 04/09/21 09:00 04/14/21 09:47 DC 04/13/21 23:02 Lorazepam (Ativan) 2 mg STAT STAT PO 04/05/21 11:51 04/05/21 11:52 DC Magnesium Hydroxide (Milk Of Magnesia) 30 ml DAILYPRN PRN PO CONSTIPATION 04/07/21 12:55 Miscellaneous (Unresolved Clarification Entry) SEE LABEL COMMENTS DAILY XX 04/13/21 09:00 04/14/21 09:49 DC Nicotine (Nicoderm Cq 21mg) 1 patch DAILY TD 04/08/21 09:00 04/15/21 08:05 Nicotine (Nicoderm Cq 21mg) 1 patch DAILY TD 04/09/21 09:00 04/08/21 10:10 DC Risperidone (RisperDAL) 2 mg BID PO 04/09/21 09:00 04/11/21 10:25 DC 04/10/21 19:55 Risperidone (RisperDAL) 2 mg QHS PO 04/08/21 21:00 04/09/21 10:13 DC Risperidone (RisperDAL) 4 mg QHS PO 04/11/21 21:00 04/13/21 21:00 Trazodone HCl (Desyrel) 50 mg QHSP PRN PO INSOMNIA 04/07/21 12:55 Cancel Allergies Coded Allergies: Sulfa (Sulfonamide Antibiotics) (Verified Allergy, Unknown, Rash, 04/07/21) BLANCO DOWD M.D. Apr 15, 2021 11:30
[2021-04-15] MEDS: IBUPROFEN 400MG TAB PO PRN ×2 (12:57→21:26)
[2021-04-15 17:50] VITALS: BP 126/71
[2021-04-15] MEDS: risperiDONE 2 MG TAB PO SCH ×2 (21:00→22:41)
[2021-04-15] MEDS: diphenhydrAMINE 50MG CAP PO SCH ×2 (21:00→22:41)
[2021-04-16 06:00] VITALS: BP 162/84
[2021-04-16] MEDS: NICOTINE 21MG/24HR 1 EA TRANSDERMAL TD SCH (09:51)
--- NOTE | 2021-04-16 12:13 | MHIPNPDOC ---
[facility] Progress Note Progress Note DATE OF SERVICE: 04/16/21 The patient refused to her risperidone last night arguing that it was a different color and size and it was not ordered by the MD. This morning the patient is claiming that she was given wrong medication but when he explained that it was the same risperidone 4 mg she is promising that she will comply with the medication. Overall patient is still very pressured and moderately elevated and remains quite paranoid with very little insight. She was told that restraining order is placed against her by her but she is still not willing to give full consent to contact her or anybody else. She remains markedly paranoid but her behavior is in better control. HISTORY:. VITAL SIGNS: See below. NEW TEST RESULTS:. CURRENT MEDICATIONS: See below. MENTAL STATUS EXAMINATION: Patient is a 45-year old female, who is in no acute distress. Speech: Is pressured but relevant. Language skills are fair. Thought processes including: Preoccupied with some paranoid thoughts but is relevant and coherent. Thought content: Moderate paranoid thoughts. Abstract reasoning, and computation: Poor. Description of associations: Pressured. Description of abnormal or psychotic thoughts: Inappropriately elevated and paranoid. Judgment: Poor. Insight: Poor. Orientation: Oriented. Recent and remote memory: No gross impairment. Attention span and concentration: Poor. Language:. Fund of knowledge:. Mood: Superficial and elevated. Affect: Inappropriate labile. DIAGNOSES: 1.. Bipolar disorder manic 2.. 3.. ASSESSMENT: Behavior is under control but remains labile and pressured MANAGEMENT PLAN: Needs stabilization with her medications. TIME SPENT: Minutes. Vital Signs Vital Signs Date Time Temp Pulse Resp B/P (MAP) Pulse Ox O2 Delivery O2 Flow Rate FiO2 04/16/21 06:00 98.4 80 18 162/84 (110) 98 04/15/21 06:29 Room Air Current Medications Current Medications Medications (Trade) Dose Ordered Sig/Yola Route PRN Reason Start Time Stop Time Status Last Admin Dose Admin Acetaminophen (Tylenol Tab) 650 mg Q6HP PRN PO PAIN 04/06/21 16:30 04/09/21 10:28 DC 04/08/21 20:44 Al Hydrox/Mg Hydrox/Simethicone (Mylanta) 30 ml Q4HP PRN PO HEARTBURN/INDIGESTION 04/07/21 12:55 Diphenhydramine HCl (Benadryl) 25 mg QHSP PO 04/08/21 08:50 04/09/21 08:27 DC Diphenhydramine HCl (Benadryl) 50 mg Q6HP PRN PO ANXIETY/AGITATION 04/09/21 08:10 Diphenhydramine HCl (Benadryl) 50 mg QHS PO 04/14/21 21:00 04/15/21 22:41 Diphenhydramine HCl (Benadryl) 50 mg STAT STAT IM 04/09/21 09:15 04/09/21 09:18 DC 04/09/21 09:27 Haloperidol (Haldol) 5 mg Q6HP PRN PO AGITATION 04/09/21 08:10 Haloperidol (Haldol) 5 mg STAT STAT IM 04/09/21 09:15 04/09/21 09:18 DC 04/09/21 09:27 Home Med (Med Rec Complete!) ASDIRECTED XX 04/05/21 10:20 04/05/21 10:21 DC Ibuprofen (Advil) 400 mg Q6HP PRN PO MODERATE PAIN (PS 5-7) 04/07/21 12:55 04/15/21 21:26 Lorazepam (Ativan) 1 mg Q6HP PRN PO ANXIETY/AGITATION 04/07/21 12:55 Lorazepam (Ativan) 1 mg STAT STAT IM 04/09/21 09:15 04/09/21 09:18 DC 04/09/21 09:27 Lorazepam (Ativan) 1 mg TID PO 04/09/21 09:00 04/14/21 09:47 DC 04/13/21 23:02 Lorazepam (Ativan) 2 mg STAT STAT PO 04/05/21 11:51 04/05/21 11:52 DC Magnesium Hydroxide (Milk Of Magnesia) 30 ml DAILYPRN PRN PO CONSTIPATION 04/07/21 12:55 Miscellaneous (Unresolved Clarification Entry) SEE LABEL COMMENTS DAILY XX 04/13/21 09:00 04/14/21 09:49 DC Nicotine (Nicoderm Cq 21mg) 1 patch DAILY TD 04/08/21 09:00 04/16/21 09:51 Nicotine (Nicoderm Cq 21mg) 1 patch DAILY TD 04/09/21 09:00 04/08/21 10:10 DC Risperidone (RisperDAL) 2 mg BID PO 04/09/21 09:00 04/11/21 10:25 DC 04/10/21 19:55 Risperidone (RisperDAL) 2 mg QHS PO 04/08/21 21:00 04/09/21 10:13 DC Risperidone (RisperDAL) 4 mg QHS PO 04/11/21 21:00 04/13/21 21:00 Trazodone HCl (Desyrel) 50 mg QHSP PRN PO INSOMNIA 04/07/21 12:55 Cancel Allergies Coded Allergies: Sulfa (Sulfonamide Antibiotics) (Verified Allergy, Unknown, Rash, 04/07/21) BLANCO DOWD M.D. Apr 16, 2021 12:13
[2021-04-16 17:10] VITALS: BP 150/95
[2021-04-16] MEDS: IBUPROFEN 400MG TAB PO PRN (20:18)
[2021-04-16] MEDS: risperiDONE 2 MG TAB PO SCH (21:00)
[2021-04-16] MEDS: diphenhydrAMINE 50MG CAP PO SCH (23:17)
[2021-04-17 06:56] VITALS: BP 119/64
[2021-04-17] MEDS: NICOTINE 21MG/24HR 1 EA TRANSDERMAL TD SCH (08:04)
--- NOTE | 2021-04-17 09:21 | MHIPNPDOC ---
[facility] Progress Note Progress Note DATE OF SERVICE: 04/17/21 The patient refused to her risperidone last night again. This morning she claims that when she takes 4 mg of risperidone her blood pressure goes up and that is why she does want to take higher dose of risperidone. Nursing staff reports that she did have elevated blood pressure 2 days ago when she took 4 mg. She has not shown any aggressive or agitated behavior but still very guarded preoccupied and grossly paranoid we will change her risperidone to 2 mg at bedtime with the Benadryl and continue with the supportive therapy and educatio n. HISTORY:. VITAL SIGNS: See below. NEW TEST RESULTS:. CURRENT MEDICATIONS: See below. MENTAL STATUS EXAMINATION: Patient is a 45-year old female, who is in no acute physical distress. Speech: Is pressured but relevant. Language skills are fair. Thought processes including: Relevant and coherent. Thought content: Denies any problem at all but appears very paranoid. Abstract reasoning, and computation: Fair. Description of associations: Organized. Description of abnormal or psychotic thoughts: Denies any problem but remains very paranoid. Judgment: Poor. Insight: Poor. Orientation: Well oriented. Recent and remote memory: No gross impairment. Attention span and concentration: Poor. Language:. Fund of knowledge:. Mood: Anxious and somewhat irritable. Affect: Blunted and preoccupied. DIAGNOSES: 1.. Bipolar disorder manic with psychotic features 2.. Rule out paranoid schizophrenia 3.. ASSESSMENT: Patient refused medication but willing to take 2 mg of risperidone MANAGEMENT PLAN: New stabilization with medication and supportive therapy. TIME SPENT: 20 minutes. Vital Signs Vital Signs Date Time Temp Pulse Resp B/P (MAP) Pulse Ox O2 Delivery O2 Flow Rate FiO2 04/17/21 06:56 97.3 74 20 119/64 (82) 99 Room Air Current Medications Current Medications Medications (Trade) Dose Ordered Sig/Yola Route PRN Reason Start Time Stop Time Status Last Admin Dose Admin Acetaminophen (Tylenol Tab) 650 mg Q6HP PRN PO PAIN 04/06/21 16:30 04/09/21 10:28 DC 04/08/21 20:44 Al Hydrox/Mg Hydrox/Simethicone (Mylanta) 30 ml Q4HP PRN PO HEARTBURN/INDIGESTION 04/07/21 12:55 Diphenhydramine HCl (Benadryl) 25 mg QHSP PO 04/08/21 08:50 04/09/21 08:27 DC Diphenhydramine HCl (Benadryl) 50 mg Q6HP PRN PO ANXIETY/AGITATION 04/09/21 08:10 Diphenhydramine HCl (Benadryl) 50 mg QHS PO 04/14/21 21:00 04/16/21 23:17 Diphenhydramine HCl (Benadryl) 50 mg STAT STAT IM 04/09/21 09:15 04/09/21 09:18 DC 04/09/21 09:27 Haloperidol (Haldol) 5 mg Q6HP PRN PO AGITATION 04/09/21 08:10 Haloperidol (Haldol) 5 mg STAT STAT IM 04/09/21 09:15 04/09/21 09:18 DC 04/09/21 09:27 Home Med (Med Rec Complete!) ASDIRECTED XX 04/05/21 10:20 04/05/21 10:21 DC Ibuprofen (Advil) 400 mg Q6HP PRN PO MODERATE PAIN (PS 5-7) 04/07/21 12:55 04/16/21 20:18 Lorazepam (Ativan) 1 mg Q6HP PRN PO ANXIETY/AGITATION 04/07/21 12:55 Lorazepam (Ativan) 1 mg STAT STAT IM 04/09/21 09:15 04/09/21 09:18 DC 04/09/21 09:27 Lorazepam (Ativan) 1 mg TID PO 04/09/21 09:00 04/14/21 09:47 DC 04/13/21 23:02 Lorazepam (Ativan) 2 mg STAT STAT PO 04/05/21 11:51 04/05/21 11:52 DC Magnesium Hydroxide (Milk Of Magnesia) 30 ml DAILYPRN PRN PO CONSTIPATION 04/07/21 12:55 Miscellaneous (Unresolved Clarification Entry) SEE LABEL COMMENTS DAILY XX 04/13/21 09:00 04/14/21 09:49 DC Nicotine (Nicoderm Cq 21mg) 1 patch DAILY TD 04/08/21 09:00 04/17/21 08:04 Nicotine (Nicoderm Cq 21mg) 1 patch DAILY TD 04/09/21 09:00 04/08/21 10:10 DC Risperidone (RisperDAL) 2 mg BID PO 04/09/21 09:00 04/11/21 10:25 DC 04/10/21 19:55 Risperidone (RisperDAL) 2 mg QHS PO 04/08/21 21:00 04/09/21 10:13 DC Risperidone (RisperDAL) 2 mg QHS PO 04/17/21 21:00 Risperidone (RisperDAL) 4 mg QHS PO 04/11/21 21:00 04/17/21 09:14 DC 04/13/21 21:00 Trazodone HCl (Desyrel) 50 mg QHSP PRN PO INSOMNIA 04/07/21 12:55 Cancel Allergies Coded Allergies: Sulfa (Sulfonamide Antibiotics) (Verified Allergy, Unknown, Rash, 04/07/21) BLANCO DOWD M.D. Apr 17, 2021 09:21
[2021-04-17] MEDS: IBUPROFEN 400MG TAB PO PRN ×2 (12:51→21:21)
[2021-04-17 18:00] VITALS: BP 149/81
[2021-04-17] MEDS: diphenhydrAMINE 50MG CAP PO SCH (23:15)
[2021-04-17] MEDS: risperiDONE 2 MG TAB PO SCH (23:15)
[2021-04-18 06:20] VITALS: BP 136/76
[2021-04-18] MEDS: NICOTINE 21MG/24HR 1 EA TRANSDERMAL TD SCH (08:03)
--- NOTE | 2021-04-18 09:20 | MHIPNPDOC ---
[facility] Progress Note Progress Note DATE OF SERVICE: 04/18/21 Patient did take her reduced risperidone last night and apparently slept okay. This morning she is very intense pressured and quite agitated. She claims that she was told that she can be discharged on and is demanding to know why she was not discharged. She proceeded to become very loud agitated and demanding immediate discharge. This is after she told her discharge plan at that she would like to stay in hospital because she has no place to go yesterday. She appears very paranoid showing very poor insight and extremely labile mood and agitation. She is in need of stabilization and she has been converted to 2 pieces status. HISTORY:. VITAL SIGNS: See below. NEW TEST RESULTS:. CURRENT MEDICATIONS: See below. MENTAL STATUS EXAMINATION: Patient is a 45-year old female, who is loud and pressured. Speech: Is pressured and demanding. Language skills are. Thought processes including: Appears grossly paranoid and is very pressured and flighty. Thought content: Denies any problem and demanding discharge. Abstract reasoning, and computation: Poor. Description of associations: Unable to carry on rational conversation. Description of abnormal or psychotic thoughts: Appears very paranoid. Judgment: Poor. Insight: Poor. Orientation: Appears oriented. Recent and remote memory: No gross impairment. Attention span and concentration: Poor. Language:. Fund of knowledge:. Mood: Angry hostile. Affect: Labile and agitated. DIAGNOSES: 1.. Bipolar disorder manic with psychotic symptoms 2.. Rule out schizoaffective disorder 3.. ASSESSMENT: Markedly agitated and grossly manic paranoid MANAGEMENT PLAN: Needs stabilization with medications. TIME SPENT: 20 minutes. Vital Signs Vital Signs Date Time Temp Pulse Resp B/P (MAP) Pulse Ox O2 Delivery O2 Flow Rate FiO2 04/18/21 06:20 98.7 80 16 136/76 (96) 99 Room Air Current Medications Current Medications Medications (Trade) Dose Ordered Sig/Yola Route PRN Reason Start Time Stop Time Status Last Admin Dose Admin Acetaminophen (Tylenol Tab) 650 mg Q6HP PRN PO PAIN 04/06/21 16:30 04/09/21 10:28 DC 04/08/21 20:44 Al Hydrox/Mg Hydrox/Simethicone (Mylanta) 30 ml Q4HP PRN PO HEARTBURN/INDIGESTION 04/07/21 12:55 Diphenhydramine HCl (Benadryl) 25 mg QHSP PO 04/08/21 08:50 04/09/21 08:27 DC Diphenhydramine HCl (Benadryl) 50 mg Q6HP PRN PO ANXIETY/AGITATION 04/09/21 08:10 Diphenhydramine HCl (Benadryl) 50 mg QHS PO 04/14/21 21:00 04/17/21 23:15 Diphenhydramine HCl (Benadryl) 50 mg STAT STAT IM 04/09/21 09:15 04/09/21 09:18 DC 04/09/21 09:27 Haloperidol (Haldol) 5 mg Q6HP PRN PO AGITATION 04/09/21 08:10 Haloperidol (Haldol) 5 mg STAT STAT IM 04/09/21 09:15 04/09/21 09:18 DC 04/09/21 09:27 Home Med (Med Rec Complete!) ASDIRECTED XX 04/05/21 10:20 04/05/21 10:21 DC Ibuprofen (Advil) 400 mg Q6HP PRN PO MODERATE PAIN (PS 5-7) 04/07/21 12:55 04/17/21 21:21 Lorazepam (Ativan) 1 mg Q6HP PRN PO ANXIETY/AGITATION 04/07/21 12:55 Lorazepam (Ativan) 1 mg STAT STAT IM 04/09/21 09:15 04/09/21 09:18 DC 04/09/21 09:27 Lorazepam (Ativan) 1 mg TID PO 04/09/21 09:00 04/14/21 09:47 DC 04/13/21 23:02 Lorazepam (Ativan) 2 mg STAT STAT PO 04/05/21 11:51 04/05/21 11:52 DC Magnesium Hydroxide (Milk Of Magnesia) 30 ml DAILYPRN PRN PO CONSTIPATION 04/07/21 12:55 Miscellaneous (Unresolved Clarification Entry) SEE LABEL COMMENTS DAILY XX 04/13/21 09:00 04/14/21 09:49 DC Nicotine (Nicoderm Cq 21mg) 1 patch DAILY TD 04/08/21 09:00 04/18/21 08:03 Nicotine (Nicoderm Cq 21mg) 1 patch DAILY TD 04/09/21 09:00 04/08/21 10:10 DC Risperidone (RisperDAL) 2 mg BID PO 04/09/21 09:00 04/11/21 10:25 DC 04/10/21 19:55 Risperidone (RisperDAL) 2 mg QHS PO 04/08/21 21:00 04/09/21 10:13 DC Risperidone (RisperDAL) 2 mg QHS PO 04/17/21 21:00 04/17/21 23:15 Risperidone (RisperDAL) 4 mg QHS PO 04/11/21 21:00 04/17/21 09:14 DC 04/13/21 21:00 Trazodone HCl (Desyrel) 50 mg QHSP PRN PO INSOMNIA 04/07/21 12:55 Cancel Allergies Coded Allergies: Sulfa (Sulfonamide Antibiotics) (Verified Allergy, Unknown, Rash, 04/07/21) BLANCO DOWD M.D. Apr 18, 2021 09:20
[2021-04-18] MEDS: IBUPROFEN 400MG TAB PO PRN (14:26)
[2021-04-18 18:00] VITALS: BP 144/89
[2021-04-18] MEDS: risperiDONE 2 MG TAB PO SCH (19:43)
[2021-04-19] MEDS: diphenhydrAMINE 50MG CAP PO SCH ×2 (03:02→22:52)
[2021-04-19 05:32] VITALS: BP 140/88
[2021-04-19] MEDS: IBUPROFEN 400MG TAB PO PRN (08:55)
[2021-04-19] MEDS: NICOTINE 21MG/24HR 1 EA TRANSDERMAL TD SCH (08:55)
[2021-04-19 18:03] VITALS: BP 144/70
[2021-04-19] MEDS: risperiDONE 2 MG TAB PO SCH (21:00)
[2021-04-20 06:25] VITALS: BP 116/61
[2021-04-20] MEDS: NICOTINE 21MG/24HR 1 EA TRANSDERMAL TD SCH (08:29)
[2021-04-20 15:38] VITALS: BP 124/70
[2021-04-20] MEDS: risperiDONE 2 MG TAB PO SCH (22:07)
[2021-04-20] MEDS: diphenhydrAMINE 50MG CAP PO SCH (22:07)
[2021-04-21] MEDS: MAALOX 30 ML SUSP *UDC PO PRN ×3 (01:46→11:48)
[2021-04-21 06:29] VITALS: BP 115/68
[2021-04-21] MEDS: NICOTINE 21MG/24HR 1 EA TRANSDERMAL TD SCH (08:09)
--- NOTE | 2021-04-21 09:18 | MHIPNPDOC ---
[facility] Progress Note Progress Note DATE OF SERVICE: 04/21/21 The patient has been refusing to take risperidone since last Wednesday even after it was reduced to 2 mg. She is claiming that she has all the side effect listed on the medication information sheet. She also claims that she was much better when she was taking her antidepressant medicine and will only take bupropion or Celexa and does not want to take any medicine that is for crazy people. She also demands to be discharged. When explained that she cannot return to previous address due to the restraining order patient claims that she can stay with her daughter even though her oldest daughter has told the automatic data processing planner that she cannot stay with her. She is very pressured irritable and demanding and at times using profanities and showing no insight. She is however denying any hallucination paranoia or any other psychotic symptoms and is requesting court hearing regarding her 2 p.c. status. She was explained how to request court hearing and will be given phone numbers for mental health radicular service. Patient was again explained that she needs antipsychotic medicine to stabilize her condition and she is refusing. So far she has not shown any aggressive or assaultive behavior and did not require any extra medications. We will observe and continue with the supportive therapy and education. HISTORY:. VITAL SIGNS: See below. NEW TEST RESULTS:. CURRENT MEDICATIONS: See below. MENTAL STATUS EXAMINATION: Patient is a 45-year old female, who is in control but very pressured. Speech: Is pressured and alert flighty. Language skills are fair. Thought processes including: Relevant but preoccupied about her discharge. Thought content: Patient is denying any problems. Abstract reasoning, and com putation: Poor. Description of associations: Relevant. Description of abnormal or psychotic thoughts: Patient is denying any hallucination or suicidal thoughts. Judgment: Poor. Insight: Poor. Orientation: Oriented. Recent and remote memory: Appears unimpaired. Attention span and concentration: Poor. Language:. Fund of knowledge:. Mood: Angry irritable. Affect: Labile agitated. DIAGNOSES: 1.. Bipolar disorder manic 2.. Rule out schizoaffective disorder 3.. ASSESSMENT: No insight and refusing any medications MANAGEMENT PLAN: Supportive therapy and education. TIME SPENT: 20 minutes. Vital Signs Vital Signs Date Time Temp Pulse Resp B/P (MAP) Pulse Ox O2 Delivery O2 Flow Rate FiO2 04/21/21 06:29 97.5 68 16 115/68 (84) 100 Room Air Current Medications Current Medications Medications (Trade) Dose Ordered Sig/Yola Route PRN Reason Start Time Stop Time Status Last Admin Dose Admin Acetaminophen (Tylenol Tab) 650 mg Q6HP PRN PO PAIN 04/06/21 16:30 04/09/21 10:28 DC 04/08/21 20:44 Al Hydrox/Mg Hydrox/Simethicone (Mylanta) 30 ml Q4HP PRN PO HEARTBURN/INDIGESTION 04/07/21 12:55 04/21/21 06:26 Diphenhydramine HCl (Benadryl) 25 mg QHSP PO 04/08/21 08:50 04/09/21 08:27 DC Diphenhydramine HCl (Benadryl) 50 mg Q6HP PRN PO ANXIETY/AGITATION 04/09/21 08:10 Diphenhydramine HCl (Benadryl) 50 mg QHS PO 04/14/21 21:00 04/20/21 22:07 Diphenhydramine HCl (Benadryl) 50 mg STAT STAT IM 04/09/21 09:15 04/09/21 09:18 DC 04/09/21 09:27 Haloperidol (Haldol) 5 mg Q6HP PRN PO AGITATION 04/09/21 08:10 Haloperidol (Haldol) 5 mg STAT STAT IM 04/09/21 09:15 04/09/21 09:18 DC 04/09/21 09:27 Home Med (Med Rec Complete!) ASDIRECTED XX 04/05/21 10:20 04/05/21 10:21 DC Ibuprofen (Advil) 400 mg Q6HP PRN PO MODERATE PAIN (PS 5-7) 04/07/21 12:55 04/19/21 08:55 Lorazepam (Ativan) 1 mg Q6HP PRN PO ANXIETY/AGITATION 04/07/21 12:55 Lorazepam (Ativan) 1 mg STAT STAT IM 04/09/21 09:15 04/09/21 09:18 DC 04/09/21 09:27 Lorazepam (Ativan) 1 mg TID PO 04/09/21 09:00 04/14/21 09:47 DC 04/13/21 23:02 Lorazepam (Ativan) 2 mg STAT STAT PO 04/05/21 11:51 04/05/21 11:52 DC Magnesium Hydroxide (Milk Of Magnesia) 30 ml DAILYPRN PRN PO CONSTIPATION 04/07/21 12:55 Miscellaneous (Unresolved Clarification Entry) SEE LABEL COMMENTS DAILY XX 04/13/21 09:00 04/14/21 09:49 DC Nicotine (Nicoderm Cq 21mg) 1 patch DAILY TD 04/08/21 09:00 04/21/21 08:09 Nicotine (Nicoderm Cq 21mg) 1 patch DAILY TD 04/09/21 09:00 04/08/21 10:10 DC Risperidone (RisperDAL) 2 mg BID PO 04/09/21 09:00 04/11/21 10:25 DC 04/10/21 19:55 Risperidone (RisperDAL) 2 mg QHS PO 04/08/21 21:00 04/09/21 10:13 DC Risperidone (RisperDAL) 2 mg QHS PO 04/17/21 21:00 04/17/21 23:15 Risperidone (RisperDAL) 4 mg QHS PO 04/11/21 21:00 04/17/21 09:14 DC 04/13/21 21:00 Trazodone HCl (Desyrel) 50 mg QHSP PRN PO INSOMNIA 04/07/21 12:55 Cancel Allergies Coded Allergies: Sulfa (Sulfonamide Antibiotics) (Verified Allergy, Unknown, Rash, 04/07/21) BLANCO DOWD M.D. Apr 21, 2021 09:18
[2021-04-21] MEDS: IBUPROFEN 400MG TAB PO PRN (18:18)
[2021-04-21 19:03] VITALS: BP 143/69
[2021-04-21] MEDS: risperiDONE 2 MG TAB PO SCH (21:00)
[2021-04-21] MEDS: diphenhydrAMINE 50MG CAP PO SCH (21:20)
[2021-04-22] MEDS: MAALOX 30 ML SUSP *UDC PO PRN ×2 (04:30→18:11)
[2021-04-22 07:18] VITALS: BP 116/55
[2021-04-22] MEDS: NICOTINE 21MG/24HR 1 EA TRANSDERMAL TD SCH (08:40)
--- NOTE | 2021-04-22 11:10 | MHIPNPDOC ---
[facility] Progress Note Progress Note DATE OF SERVICE: 04/22/21 The patient again refused risperidone but took Benadryl and reports that she slept well. She has been in good control without any aggressive agitated or inappropriate behavior. She is a superficially pleasant and denies any serious depression or anxiety and denies any suicidal or homicidal thoughts and offers no new complaints. She is complaining of longstanding acid reflux symptoms and is asking for medications. We will give her Protonix and continue with the supportive therapy and lethality evaluation. HISTORY:. VITAL SIGNS: See below. NEW TEST RESULTS:. CURRENT MEDICATIONS: See below. MENTAL STATUS EXAMINATION: Patient is a 45-year old female, who is in no acute distress. Speech: Is relevant and productive. Language skills are good. Thought processes including: Able to answer in coherent fashion. Thought content: She is denying any problems. Abstract reasoning, and computation: Fair. Description of associations: Not as pressured and organized. Description of abnormal or psychotic thoughts: Patient again denies any problems. Judgment: Poor. Insight: poor]. Orientation: Oriented. Recent and remote memory: No gross impairment. Attention span and concentration:. Language:. Fund of knowledge:. Mood: Superficially bright. Affect: Animated and not as agitated today. DIAGNOSES: 1.. Bipolar disorder manic 2.. Rule out schizoaffective disorder 3.. ASSESSMENT: Patient continues to refuse medications but maintaining good control MANAGEMENT PLAN: Education and supportive therapy. TIME SPENT: 20 minutes. Vital Signs Vital Signs Date Time Temp Pulse Resp B/P (MAP) Pulse Ox O2 Delivery O2 Flow Rate FiO2 04/22/21 07:18 98.4 74 20 116/55 (75) 98 Room Air Current Medications Current Medications Medications (Trade) Dose Ordered Sig/Yola Route PRN Reason Start Time Stop Time Status Last Admin Dose Admin Acetaminophen (Tylenol Tab) 650 mg Q6HP PRN PO PAIN 04/06/21 16:30 04/09/21 10:28 DC 04/08/21 20:44 Al Hydrox/Mg Hydrox/Simethicone (Mylanta) 30 ml Q4HP PRN PO HEARTBURN/INDIGESTION 04/07/21 12:55 04/22/21 04:30 Diphenhydramine HCl (Benadryl) 25 mg QHSP PO 04/08/21 08:50 04/09/21 08:27 DC Diphenhydramine HCl (Benadryl) 50 mg Q6HP PRN PO ANXIETY/AGITATION 04/09/21 08:10 Diphenhydramine HCl (Benadryl) 50 mg QHS PO 04/14/21 21:00 04/21/21 21:20 Diphenhydramine HCl (Benadryl) 50 mg STAT STAT IM 04/09/21 09:15 04/09/21 09:18 DC 04/09/21 09:27 Haloperidol (Haldol) 5 mg Q6HP PRN PO AGITATION 04/09/21 08:10 Haloperidol (Haldol) 5 mg STAT STAT IM 04/09/21 09:15 04/09/21 09:18 DC 04/09/21 09:27 Home Med (Med Rec Complete!) ASDIRECTED XX 04/05/21 10:20 04/05/21 10:21 DC Ibuprofen (Advil) 400 mg Q6HP PRN PO MODERATE PAIN (PS 5-7) 04/07/21 12:55 04/21/21 18:18 Lorazepam (Ativan) 1 mg Q6HP PRN PO ANXIETY/AGITATION 04/07/21 12:55 04/21/21 09:47 DC Lorazepam (Ativan) 1 mg STAT STAT IM 04/09/21 09:15 04/09/21 09:18 DC 04/09/21 09:27 Lorazepam (Ativan) 1 mg TID PO 04/09/21 09:00 04/14/21 09:47 DC 04/13/21 23:02 Lorazepam (Ativan) 2 mg STAT STAT PO 04/05/21 11:51 04/05/21 11:52 DC Magnesium Hydroxide (Milk Of Magnesia) 30 ml DAILYPRN PRN PO CONSTIPATION 04/07/21 12:55 Miscellaneous (Unresolved Clarification Entry) SEE LABEL COMMENTS DAILY XX 04/13/21 09:00 04/14/21 09:49 DC Nicotine (Nicoderm Cq 21mg) 1 patch DAILY TD 04/08/21 09:00 04/22/21 08:40 Nicotine (Nicoderm Cq 21mg) 1 patch DAILY TD 04/09/21 09:00 04/08/21 10:10 DC Pantoprazole Sodium (Protonix) 20 mg DAILY PO 04/22/21 09:00 Risperidone (RisperDAL) 2 mg BID PO 04/09/21 09:00 04/11/21 10:25 DC 04/10/21 19:55 Risperidone (RisperDAL) 2 mg QHS PO 04/08/21 21:00 04/09/21 10:13 DC Risperidone (RisperDAL) 2 mg QHS PO 04/17/21 21:00 04/17/21 23:15 Risperidone (RisperDAL) 4 mg QHS PO 04/11/21 21:00 04/17/21 09:14 DC 04/13/21 21:00 Trazodone HCl (Desyrel) 50 mg QHSP PRN PO INSOMNIA 04/07/21 12:55 Cancel Allergies Coded Allergies: Sulfa (Sulfonamide Antibiotics) (Verified Allergy, Unknown, Rash, 04/07/21) BLANCO DOWD M.D. Apr 22, 2021 11:10
[2021-04-22] MEDS: PANTOPRAZOLE 20 MG TAB PO SCH (12:04)
[2021-04-22] MEDS: IBUPROFEN 400MG TAB PO PRN ×2 (15:17→22:09)
[2021-04-22 18:02] VITALS: BP 141/80
[2021-04-22] MEDS: risperiDONE 2 MG TAB PO SCH (21:00)
[2021-04-22] MEDS: diphenhydrAMINE 50MG CAP PO SCH (22:09)
[2021-04-23] MEDS: NICOTINE 21MG/24HR 1 EA TRANSDERMAL TD SCH (08:51)
[2021-04-23] MEDS: PANTOPRAZOLE 20 MG TAB PO SCH (08:51)
--- NOTE | 2021-04-23 09:37 | MHIPNPDOC ---
[facility] Progress Note Progress Note DATE OF SERVICE: 04/23/21 Patient again refused her risperidone and requested a court hearing regarding her retention. She is however maintaining very good control and has not shown any aggressive assaultive or suicidal behavior. She continues to deny any mental health issues and showing absolutely no insight. She still does not believe that she has a restraining order placed against her and insists that her does not have any right to keep her away. She is fully capable of her ADLs and her hygiene is good and eating sleeping well and denies any depressed mood or suicidal thoughts. Patient was explained that if she maintains safe behavior and has a safe housing we may be able to discharge even though she is showing no insight and no basic improvement HISTORY: . VITAL SIGNS: See below. NEW TEST RESULTS: . CURRENT MEDICATIONS: See below. MENTAL STATUS EXAMINATION: Patient is a [45]-year old female, who is [in no acute distress]. Speech: Is [pressured but relevant and coherent]. Language skills are [fair]. Thought processes including: [Able to respond in relevant manner]. Thought content: [Patient is denying any problems]. Abstract reasoning, and computation: [Fair]. Description of associations: [Pressured but organized]. Description of abnormal or psychotic thoughts: [Denies any hallucination or paranoia]. Judgment: [Poor]. Insight: poor]. Orientation: [Oriented]. Recent and remote memory: [Does not show any gross impairment]. Attention span and concentration: . Language: . Fund of knowledge: . Mood: [Denies any depression or anxiety]. Affect: [Intense but animated and not as labile]. DIAGNOSES: 1. . Bipolar disorder man 2. . 3. . ASSESSMENT:[Refusing medications and requesting court hearing and maintaining good control] MANAGEMENT PLAN: Consider discharge if she has safe housing]. TIME SPENT: [20] minutes. Vital Signs Vital Signs Date Time Temp Pulse Resp B/P (MAP) Pulse Ox O2 Delivery O2 Flow Rate FiO2 04/22/21 18:02 97.4 80 16 141/80 (100) 04/22/21 07:18 98 Room Air Current Medications Current Medications Medications (Trade) Dose Ordered Sig/Yola Route PRN Reason Start Time Stop Time Status Last Admin Dose Admin Acetaminophen (Tylenol Tab) 650 mg Q6HP PRN PO PAIN 04/06/21 16:30 04/09/21 10:28 DC 04/08/21 20:44 Al Hydrox/Mg Hydrox/Simethicone (Mylanta) 30 ml Q4HP PRN PO HEARTBURN/INDIGESTION 04/07/21 12:55 04/22/21 18:11 Diphenhydramine HCl (Benadryl) 25 mg QHSP PO 04/08/21 08:50 04/09/21 08:27 DC Diphenhydramine HCl (Benadryl) 50 mg Q6HP PRN PO ANXIETY/AGITATION 04/09/21 08:10 Diphenhydramine HCl (Benadryl) 50 mg QHS PO 04/14/21 21:00 04/22/21 22:09 Diphenhydramine HCl (Benadryl) 50 mg STAT STAT IM 04/09/21 09:15 04/09/21 09:18 DC 04/09/21 09:27 Haloperidol (Haldol) 5 mg Q6HP PRN PO AGITATION 04/09/21 08:10 Haloperidol (Haldol) 5 mg STAT STAT IM 04/09/21 09:15 04/09/21 09:18 DC 04/09/21 09:27 Home Med (Med Rec Complete!) ASDIRECTED XX 04/05/21 10:20 04/05/21 10:21 DC Ibuprofen (Advil) 400 mg Q6HP PRN PO MODERATE PAIN (PS 5-7) 04/07/21 12:55 04/22/21 22:09 Lorazepam (Ativan) 1 mg Q6HP PRN PO ANXIETY/AGITATION 04/07/21 12:55 04/21/21 09:47 DC Lorazepam (Ativan) 1 mg STAT STAT IM 04/09/21 09:15 04/09/21 09:18 DC 04/09/21 09:27 Lorazepam (Ativan) 1 mg TID PO 04/09/21 09:00 04/14/21 09:47 DC 04/13/21 23:02 Lorazepam (Ativan) 2 mg STAT STAT PO 04/05/21 11:51 04/05/21 11:52 DC Magnesium Hydroxide (Milk Of Magnesia) 30 ml DAILYPRN PRN PO CONSTIPATION 04/07/21 12:55 Miscellaneous (Unresolved Clarification Entry) SEE LABEL COMMENTS DAILY XX 04/13/21 09:00 04/14/21 09:49 DC Nicotine (Nicoderm Cq 21mg) 1 patch DAILY TD 04/08/21 09:00 04/23/21 08:51 Nicotine (Nicoderm Cq 21mg) 1 patch DAILY TD 04/09/21 09:00 04/08/21 10:10 DC Pantoprazole Sodium (Protonix) 20 mg DAILY PO 04/22/21 09:00 04/23/21 08:51 Risperidone (RisperDAL) 2 mg BID PO 04/09/21 09:00 04/11/21 10:25 DC 04/10/21 19:55 Risperidone (RisperDAL) 2 mg QHS PO 04/08/21 21:00 04/09/21 10:13 DC Risperidone (RisperDAL) 2 mg QHS PO 04/17/21 21:00 04/17/21 23:15 Risperidone (RisperDAL) 4 mg QHS PO 04/11/21 21:00 04/17/21 09:14 DC 04/13/21 21:00 Trazodone HCl (Desyrel) 50 mg QHSP PRN PO INSOMNIA 04/07/21 12:55 Cancel Allergies Coded Allergies: Sulfa (Sulfonamide Antibiotics) (Verified Allergy, Unknown, Rash, 04/07/21) BLANCO DOWD M.D. Apr 23, 2021 09:37
[2021-04-23] MEDS: IBUPROFEN 400MG TAB PO PRN (14:39)
[2021-04-23] MEDS: MAALOX 30 ML SUSP *UDC PO PRN (17:50)
[2021-04-23 18:37] VITALS: BP 152/94
[2021-04-23] MEDS: risperiDONE 2 MG TAB PO SCH (21:00)
[2021-04-23] MEDS: diphenhydrAMINE 50MG CAP PO SCH (21:16)
[2021-04-24 06:29] VITALS: BP 130/68
[2021-04-24] MEDS: PANTOPRAZOLE 20 MG TAB PO SCH (08:26)
[2021-04-24] MEDS: NICOTINE 21MG/24HR 1 EA TRANSDERMAL TD SCH (08:26)
--- NOTE | 2021-04-24 10:04 | MHIPNPDOC ---
[facility] Progress Note Progress Note DATE OF SERVICE: 04/24/21 Patient continued to refuse to take risperidone but is maintaining very good control and is a somewhat less pressured and more pleasant and appropriate. She continues to show no insight and does not believe she has any mental health issues but her behavior has been in good control and is not showing any aggressive assaultive or suicidal nature. She is willing to accept [facility] emergency housing and understands that she cannot go back to her place because of the restraining order. HISTORY:. VITAL SIGNS: See below. NEW TEST RESULTS:. CURRENT MEDICATIONS: See below. MENTAL STATUS EXAMINATION: Patient is a 45-year old female, who is in good control. Speech: Is not as pressured and more relevant. Language skills are good. Thought processes including: Able to discuss the housing issue rational. Thought content: Denies any problem. Abstract reasoning, and computation: Fair. Description of associations: Organized. Description of abnormal or psychotic thoughts: Patient denies any hallucination paranoia. Judgment: Fair. Insight: Poor. Orientation: Well oriented. Recent and remote memory: No gross impairment. Attention span and concentration: Fair. Language:. Fund of knowledge:. Mood: [Not as angry or hostile. Affect: More pleasant and appropriate. DIAGNOSES: 1.. Bipolar disorder manic 2.. 3.. ASSESSMENT: Maintaining good control and showing decreased agitation and paranoia MANAGEMENT PLAN: May discharge tomorrow if she maintains good control. TIME SPENT: 20 minutes. Vital Signs Vital Signs Date Time Temp Pulse Resp B/P (MAP) Pulse Ox O2 Delivery O2 Flow Rate FiO2 04/24/21 06:29 97.4 78 20 130/68 (88) 100 Room Air Current Medications Current Medications Medications (Trade) Dose Ordered Sig/Yola Route PRN Reason Start Time Stop Time Status Last Admin Dose Admin Acetaminophen (Tylenol Tab) 650 mg Q6HP PRN PO PAIN 04/06/21 16:30 04/09/21 10:28 DC 04/08/21 20:44 Al Hydrox/Mg Hydrox/Simethicone (Mylanta) 30 ml Q4HP PRN PO HEARTBURN/INDIGESTION 04/07/21 12:55 04/23/21 17:50 Diphenhydramine HCl (Benadryl) 25 mg QHSP PO 04/08/21 08:50 04/09/21 08:27 DC Diphenhydramine HCl (Benadryl) 50 mg Q6HP PRN PO ANXIETY/AGITATION 04/09/21 08:10 Diphenhydramine HCl (Benadryl) 50 mg QHS PO 04/14/21 21:00 04/23/21 21:16 Diphenhydramine HCl (Benadryl) 50 mg STAT STAT IM 04/09/21 09:15 04/09/21 09:18 DC 04/09/21 09:27 Haloperidol (Haldol) 5 mg Q6HP PRN PO AGITATION 04/09/21 08:10 Haloperidol (Haldol) 5 mg STAT STAT IM 04/09/21 09:15 04/09/21 09:18 DC 04/09/21 09:27 Home Med (Med Rec Complete!) ASDIRECTED XX 04/05/21 10:20 04/05/21 10:21 DC Ibuprofen (Advil) 400 mg Q6HP PRN PO MODERATE PAIN (PS 5-7) 04/07/21 12:55 04/23/21 14:39 Lorazepam (Ativan) 1 mg Q6HP PRN PO ANXIETY/AGITATION 04/07/21 12:55 04/21/21 09:47 DC Lorazepam (Ativan) 1 mg STAT STAT IM 04/09/21 09:15 04/09/21 09:18 DC 04/09/21 09:27 Lorazepam (Ativan) 1 mg TID PO 04/09/21 09:00 04/14/21 09:47 DC 04/13/21 23:02 Lorazepam (Ativan) 2 mg STAT STAT PO 04/05/21 11:51 04/05/21 11:52 DC Magnesium Hydroxide (Milk Of Magnesia) 30 ml DAILYPRN PRN PO CONSTIPATION 04/07/21 12:55 Miscellaneous (Unresolved Clarification Entry) SEE LABEL COMMENTS DAILY XX 04/13/21 09:00 04/14/21 09:49 DC Nicotine (Nicoderm Cq 21mg) 1 patch DAILY TD 04/08/21 09:00 04/24/21 08:26 Nicotine (Nicoderm Cq 21mg) 1 patch DAILY TD 04/09/21 09:00 04/08/21 10:10 DC Pantoprazole Sodium (Protonix) 20 mg DAILY PO 04/22/21 09:00 04/24/21 08:26 Risperidone (RisperDAL) 2 mg BID PO 04/09/21 09:00 04/11/21 10:25 DC 04/10/21 19:55 Risperidone (RisperDAL) 2 mg QHS PO 04/08/21 21:00 04/09/21 10:13 DC Risperidone (RisperDAL) 2 mg QHS PO 04/17/21 21:00 04/17/21 23:15 Risperidone (RisperDAL) 4 mg QHS PO 04/11/21 21:00 04/17/21 09:14 DC 04/13/21 21:00 Trazodone HCl (Desyrel) 50 mg QHSP PRN PO INSOMNIA 04/07/21 12:55 Cancel Allergies Coded Allergies: Sulfa (Sulfonamide Antibiotics) (Verified Allergy, Unknown, Rash, 04/07/21) BLANCO DOWD M.D. Apr 24, 2021 10:04
[2021-04-24] MEDS: IBUPROFEN 400MG TAB PO PRN ×2 (12:20→19:08)
[2021-04-24 17:56] VITALS: BP 160/71
[2021-04-24] MEDS: risperiDONE 2 MG TAB PO SCH (21:00)
[2021-04-24] MEDS: diphenhydrAMINE 50MG CAP PO SCH (21:48)
[2021-04-25 06:02] VITALS: BP 124/72
[2021-04-25] MEDS: PANTOPRAZOLE 20 MG TAB PO SCH (08:39)
[2021-04-25] MEDS: NICOTINE 21MG/24HR 1 EA TRANSDERMAL TD SCH (08:39)
--- NOTE | 2021-04-25 09:57 | MHIPNPDOC ---
[facility] Progress Note Progress Note DATE OF SERVICE: 04/25/21 The patient has been maintaining good control without showing any aggressive assaultive or suicidal behavior and was scheduled for discharge today. Patient however is reporting that she does not feel comfortable and safe to go to emergency housing with the DSS but also reports significant paranoid thoughts about her and even with the police DSS claiming that she does not feel safe to call the police to be escorted to go to her house to remove her belongings and is asking to remain on the inpatient unit. Patient was again suggested to cooperate with her medication but patient is politely declining to take the medicine claiming that she can sleep good with Benadryl and does not want any antipsychotic medicine because she does not feel she is psychotic or paranoid. She is again denying any hallucinations denies that she is paranoid denies any serious depression or suicidal thoughts but continues to believe that her is trying to harm her and undermine her life because she wanted to get divorce initially. She is showing very poor insight and is refusing to get assistance from any agencies and does not feel safe but does not have any other support system. HISTORY:. VITAL SIGNS: See below. NEW TEST RESULTS:. CURRENT MEDICATIONS: See below. MENTAL STATUS EXAMINATION: Patient is a 45-year old female, who is in no acute distress. Speech: Is pressured but productive is relevant. Language skills are good. Thought processes including: Organized and productive but preoccupied with paranoid fear. Thought content: He is quite preoccupied with significant paranoia and feeling unsafe. Abstract reasoning, and computation: Poor. Description of associations: Is better organized. Description of abnormal or psychotic thoughts: Patient does not trust any government agencies including police and does not trust her but denies any command hallucination. Judgment: Poor. Insight: Poor. Orientation: Oriented. Recent and remote memory: No gross impairment. Attention span and concentration: Poor. Language:. Fund of knowledge:. Mood: Feeling anxious but denies any serious depression. Affect: Superficially labile but animated. DIAGNOSES: 1.. Bipolar disorder manic 2.. Rule out paranoid schizophrenia 3.. ASSESSMENT: Patient has no insight and refusing medications but is maintaining good control with no dangerous behavior MANAGEMENT PLAN: Educate and supportive therapy. TIME SPENT: 20 minutes. Vital Signs Vital Signs Date Time Temp Pulse Resp B/P (MAP) Pulse Ox O2 Delivery O2 Flow Rate FiO2 04/25/21 06:02 98.5 74 18 124/72 (89) 100 Room Air Current Medications Current Medications Medications (Trade) Dose Ordered Sig/Yola Route PRN Reason Start Time Stop Time Status Last Admin Dose Admin Acetaminophen (Tylenol Tab) 650 mg Q6HP PRN PO PAIN 04/06/21 16:30 04/09/21 10:28 DC 04/08/21 20:44 Al Hydrox/Mg Hydrox/Simethicone (Mylanta) 30 ml Q4HP PRN PO HEARTBURN/INDIGESTION 04/07/21 12:55 04/23/21 17:50 Diphenhydramine HCl (Benadryl) 25 mg QHSP PO 04/08/21 08:50 04/09/21 08:27 DC Diphenhydramine HCl (Benadryl) 50 mg Q6HP PRN PO ANXIETY/AGITATION 04/09/21 08:10 Diphenhydramine HCl (Benadryl) 50 mg QHS PO 04/14/21 21:00 04/24/21 21:48 Diphenhydramine HCl (Benadryl) 50 mg STAT STAT IM 04/09/21 09:15 04/09/21 09:18 DC 04/09/21 09:27 Haloperidol (Haldol) 5 mg Q6HP PRN PO AGITATION 04/09/21 08:10 Haloperidol (Haldol) 5 mg STAT STAT IM 04/09/21 09:15 04/09/21 09:18 DC 04/09/21 09:27 Home Med (Med Rec Complete!) ASDIRECTED XX 04/05/21 10:20 04/05/21 10:21 DC Ibuprofen (Advil) 400 mg Q6HP PRN PO MODERATE PAIN (PS 5-7) 04/07/21 12:55 04/24/21 19:08 Lorazepam (Ativan) 1 mg Q6HP PRN PO ANXIETY/AGITATION 04/07/21 12:55 04/21/21 09:47 DC Lorazepam (Ativan) 1 mg STAT STAT IM 04/09/21 09:15 04/09/21 09:18 DC 04/09/21 09:27 Lorazepam (Ativan) 1 mg TID PO 04/09/21 09:00 04/14/21 09:47 DC 04/13/21 23:02 Lorazepam (Ativan) 2 mg STAT STAT PO 04/05/21 11:51 04/05/21 11:52 DC Magnesium Hydroxide (Milk Of Magnesia) 30 ml DAILYPRN PRN PO CONSTIPATION 04/07/21 12:55 Miscellaneous (Unresolved Clarification Entry) SEE LABEL COMMENTS DAILY XX 04/13/21 09:00 04/14/21 09:49 DC Nicotine (Nicoderm Cq 21mg) 1 patch DAILY TD 04/08/21 09:00 04/25/21 08:39 Nicotine (Nicoderm Cq 21mg) 1 patch DAILY TD 04/09/21 09:00 04/08/21 10:10 DC Pantoprazole Sodium (Protonix) 20 mg DAILY PO 04/22/21 09:00 04/25/21 08:39 Risperidone (RisperDAL) 2 mg BID PO 04/09/21 09:00 04/11/21 10:25 DC 04/10/21 19:55 Risperidone (RisperDAL) 2 mg QHS PO 04/08/21 21:00 04/09/21 10:13 DC Risperidone (RisperDAL) 2 mg QHS PO 04/17/21 21:00 04/17/21 23:15 Risperidone (RisperDAL) 4 mg QHS PO 04/11/21 21:00 04/17/21 09:14 DC 04/13/21 21:00 Trazodone HCl (Desyrel) 50 mg QHSP PRN PO INSOMNIA 04/07/21 12:55 Cancel Allergies Coded Allergies: Sulfa (Sulfonamide Antibiotics) (Verified Allergy, Unknown, Rash, 04/07/21) BLANCO DOWD M.D. Apr 25, 2021 09:57
[2021-04-25 18:00] VITALS: BP 141/77
[2021-04-25] MEDS: risperiDONE 2 MG TAB PO SCH ×2 (21:00→22:33)
[2021-04-25] MEDS: diphenhydrAMINE 50MG CAP PO SCH (22:33)
[2021-04-26 06:54] VITALS: BP 147/65
[2021-04-26] MEDS: PANTOPRAZOLE 20 MG TAB PO SCH (08:31)
[2021-04-26] MEDS: NICOTINE 21MG/24HR 1 EA TRANSDERMAL TD SCH (08:31)
[2021-04-26] MEDS: risperiDONE 2 MG TAB PO SCH (21:00)
[2021-04-26] MEDS: diphenhydrAMINE 50MG CAP PO SCH (22:17)
[2021-04-27 06:50] VITALS: BP 122/66
[2021-04-27] MEDS: PANTOPRAZOLE 20 MG TAB PO SCH (08:29)
[2021-04-27] MEDS: NICOTINE 21MG/24HR 1 EA TRANSDERMAL TD SCH (08:30)
[2021-04-27] MEDS: IBUPROFEN 400MG TAB PO PRN (16:50)
[2021-04-27 16:56] VITALS: BP 142/90
[2021-04-27] MEDS: risperiDONE 2 MG TAB PO SCH (21:00)
[2021-04-27] MEDS: diphenhydrAMINE 50MG CAP PO SCH (21:00)
[2021-04-28 06:23] VITALS: BP 114/66
[2021-04-28] MEDS: PANTOPRAZOLE 20 MG TAB PO SCH (08:22)
[2021-04-28] MEDS: NICOTINE 21MG/24HR 1 EA TRANSDERMAL TD SCH (08:22)
--- NOTE | 2021-04-28 09:25 | MHIPNPDOC ---
[facility] Progress Note Progress Note DATE OF SERVICE: 04/28/21 Patient is not showing any major behavioral problem and has not been aggressive assaultive or suicidal. She is a superficial a little labile but is quite pleas ant with other patients and socializing and engaging. She is showing no insight and continues to refuse any medications. Today the patient is able to discuss a future plan and when asked about the court hearing that she requested regarding her involuntary retention the patient agrees that she does not need to go to the court since she knows that she was given choice of either being discharged or sign the voluntary status. She is clearly explained that she will have to sign the voluntary paper if she plans to stay in hospital waiting for safe discharge plan or she should be discharged tomorrow since she requested a court hearing. She is however asking to be discharged to the [facility] emergency housing since she does not feel that she needs any treatment for her emotional condition. HISTORY:. VITAL SIGNS: See below. NEW TEST RESULTS:. CURRENT MEDICATIONS: See below. MENTAL STATUS EXAMINATION: Patient is a 45-year old female, who is in no acute distress. Speech: Is productive pressured but relevant and coherent. Language skills are good. Thought processes including: Relevant. Thought content: Denies any depressed mood but remains quite paranoid about her ex-. Abstract reasoning, and computation: Poor. Description of associations: Organized. Description of abnormal or psychotic thoughts: Denies any hallucinations and denies any depression and reports feeling great but quite paranoid about her . Judgment: Poor. Insight: poor]. Orientation: Oriented. Recent and remote memory: No gross impairment. Attention span and concentration:. Language:. Fund of knowledge:. Mood: Elevated. Affect: Inappropriately elevated but quite animated. DIAGNOSES: 1.. Bipolar disorder manic 2.. Rule out paranoid schizophrenia 3.. ASSESSMENT: The patient continues to show significant psychomotor agitation and moderate paranoid ideas to her or ex-. She is however showing no dangerous behavior has no thoughts of aggressive homicidal nature and no suicidal thoughts and is fully capable of her ADLs and maintaining good control. Again there is no grounds for continued involuntary retention or treatment over objection MANAGEMENT PLAN: We will discharge her tomorrow. TIME SPENT: 20 minutes. Vital Signs Vital Signs Date Time Temp Pulse Resp B/P (MAP) Pulse Ox O2 Delivery O2 Flow Rate FiO2 04/28/21 06:23 97.5 78 20 114/66 (82) 100 Room Air Current Medications Current Medications Medications (Trade) Dose Ordered Sig/Yola Route PRN Reason Start Time Stop Time Status Last Admin Dose Admin Acetaminophen (Tylenol Tab) 650 mg Q6HP PRN PO PAIN 04/06/21 16:30 04/09/21 10:28 DC 04/08/21 20:44 Al Hydrox/Mg Hydrox/Simethicone (Mylanta) 30 ml Q4HP PRN PO HEARTBURN/INDIGESTION 04/07/21 12:55 04/23/21 17:50 Diphenhydramine HCl (Benadryl) 25 mg QHSP PO 04/08/21 08:50 04/09/21 08:27 DC Diphenhydramine HCl (Benadryl) 50 mg Q6HP PRN PO ANXIETY/AGITATION 04/09/21 08:10 Diphenhydramine HCl (Benadryl) 50 mg QHS PO 04/14/21 21:00 04/26/21 22:17 Diphenhydramine HCl (Benadryl) 50 mg STAT STAT IM 04/09/21 09:15 04/09/21 09:18 DC 04/09/21 09:27 Haloperidol (Haldol) 5 mg Q6HP PRN PO AGITATION 04/09/21 08:10 Haloperidol (Haldol) 5 mg STAT STAT IM 04/09/21 09:15 04/09/21 09:18 DC 04/09/21 09:27 Home Med (Med Rec Complete!) ASDIRECTED XX 04/05/21 10:20 04/05/21 10:21 DC Ibuprofen (Advil) 400 mg Q6HP PRN PO MODERATE PAIN (PS 5-7) 04/07/21 12:55 04/27/21 16:50 Lorazepam (Ativan) 1 mg Q6HP PRN PO ANXIETY/AGITATION 04/07/21 12:55 04/21/21 09:47 DC Lorazepam (Ativan) 1 mg STAT STAT IM 04/09/21 09:15 04/09/21 09:18 DC 04/09/21 09:27 Lorazepam (Ativan) 1 mg TID PO 04/09/21 09:00 04/14/21 09:47 DC 04/13/21 23:02 Lorazepam (Ativan) 2 mg STAT STAT PO 04/05/21 11:51 04/05/21 11:52 DC Magnesium Hydroxide (Milk Of Magnesia) 30 ml DAILYPRN PRN PO CONSTIPATION 04/07/21 12:55 Miscellaneous (Unresolved Clarification Entry) SEE LABEL COMMENTS DAILY XX 04/13/21 09:00 04/14/21 09:49 DC Nicotine (Nicoderm Cq 21mg) 1 patch DAILY TD 04/08/21 09:00 04/28/21 08:22 Nicotine (Nicoderm Cq 21mg) 1 patch DAILY TD 04/09/21 09:00 04/08/21 10:10 DC Pantoprazole Sodium (Protonix) 20 mg DAILY PO 04/22/21 09:00 04/28/21 08:22 Risperidone (RisperDAL) 2 mg BID PO 04/09/21 09:00 04/11/21 10:25 DC 04/10/21 19:55 Risperidone (RisperDAL) 2 mg QHS PO 04/08/21 21:00 04/09/21 10:13 DC Risperidone (RisperDAL) 2 mg QHS PO 04/17/21 21:00 04/17/21 23:15 Risperidone (RisperDAL) 4 mg QHS PO 04/11/21 21:00 04/17/21 09:14 DC 04/13/21 21:00 Trazodone HCl (Desyrel) 50 mg QHSP PRN PO INSOMNIA 04/07/21 12:55 Cancel Allergies Coded Allergies: Sulfa (Sulfonamide Antibiotics) (Verified Allergy, Unknown, Rash, 04/07/21) BLANCO DOWD M.D. Apr 28, 2021 09:25
[2021-04-28 17:40] VITALS: BP 131/68
[2021-04-28] MEDS: IBUPROFEN 400MG TAB PO PRN (17:58)
[2021-04-28] MEDS: risperiDONE 2 MG TAB PO SCH (21:00)
[2021-04-28] MEDS: diphenhydrAMINE 50MG CAP PO SCH (21:00)
[2021-04-29 07:12] VITALS: BP 117/59
[2021-04-29] MEDS: PANTOPRAZOLE 20 MG TAB PO SCH (08:09)
[2021-04-29] MEDS: NICOTINE 21MG/24HR 1 EA TRANSDERMAL TD SCH (08:09)
--- NOTE | 2021-04-30 10:07 | MHDSPDOC ---
[facility] Discharge Summary Discharge Summary DATE OF ADMISSION: Apr 07, 2021 at 12:53 DATE OF DISCHARGE: Apr 29, 2021 at 10:04 DISCHARGE DIAGNOSES: 1.. Bipolar disorder manic 2.. REASON FOR ADMISSION: 45-year-old female with no prior psychiatric history admitted on 939 status after she was brought to emergency room by police due to increasing bizarre behavior. She reportedly has been calling 911 repeatedly claiming that somebody was doing something to her house and the police did not find any evidence of that but the patient was found to be very pressured agitated and bizarre. On admission exam patient showed marked psychomotor agitation with inappropriately elevated mood and appears to be actively hallucinating. CONSULTANTS INVOLVED: TREATMENT AND PROGRESS ON THE UNIT : Patient was seen for supportive therapy and was started on risperidone 2 mg at bedtime. Patient cooperated with the medicine for about 2 days but stopped taking it after it was increased to 4 mg at bedtime. After agreeing to take 2 mg dose patient refused to take any antipsychotic medicine claiming that she is not sick and she does not want to take the medicine. She has taken Benadryl 50 mg at bedtime with some benefit for sleep.. HOSPITAL COURSE: After refusing to take her risperidone she remained quite pressured and labile and showed no insight. She is however maintaining very good control without any agitated or assaultive aggressive or suicidal behavior and did not require any extra medications to control her behavior. She remained inappropriately elevated and very pressured and easily distractible but is not expressing any grossly delusional ideas and maintained very good ADL skills and hygiene. It was also learned that has obtained order of protection and patient is apart from returning to the house anymore. Due to her lack of the insight and refusal to take the medications patient was converted to 2 physician certificate status but treatment over objection was not petitioned since the patient is not showing any imminent danger to herself or others. In the meantime patient is showing significant reduction in her psychomotor agitation and is sleeping well eating well and maintaining good control. She is denying any depressed mood denies any suicidal thoughts and is not showing any dangerous behavior. She entered a request for court hearing regarding her involuntary retention and since there is no legal ground to continue involuntary retention since the patient is not exhibiting any dangerous behavior despite her lack of insight patient will be discharged per her request. She is homeless at this [facility] and she understands that that she is prohibited from returning to her house she was given emergency assistance for housing through [facility] and patient is willing to go to [facility] for emergency housing. DISCHARGE ASSESSMENT: The patient is still quite elevated in her mood and pressured speech but is not showing any bizarre agitated or aggressive assaultive behavior and is denying any depression or suicidal thoughts. She appears to meet the diagnostic criteria for bipolar disorder but currently is not an imminent danger to herself or other people and is fully capable of basic ADLs. MENTAL STATUS EXAMINATION ON DISCHARGE: Patient is a 44-year old female, who is in no acute distress. Speech is pressured but relevant. Language skills are fair. Thought processes including: Productive and coherent. Thought content: She is not expressing any gross delusional thinking and no suicidal thoughts. Abstract reasoning, and computation: Fair. Description of associations: Organized. Description of abnormal or psychotic thoughts: She is denying any hallucination or paranoia. Judgment: Poor. Insight: Poor. Orientation to oriented. Recent and remote memory: No impairment. Attention span and concentration: Fair. Language:. Fund of knowledge: Average. Mood: Elevated. Affect: Inappropriately elevated. MEDICATIONS ON DISCHARGE: -For. Patient is refusing any psychotropic medications -For. -For. PLAN/FOLLOWUP ARRANGEMENTS: Arranged by the convention planner but patient is refusing. The amount of time spent in the coordination of care for this patient was approximately 35 minutes. ETOH/Disorder Med Rx ETOH/DRUG DISORDER RX: N/A Vital Signs/I&Os Vital Signs Date Time Temp Pulse Resp B/P (MAP) Pulse Ox O2 Delivery O2 Flow Rate FiO2 04/29/21 07:12 97.9 82 16 117/59 (78) 99 Room Air Medications No Active Prescriptions or Reported Meds Allergies Coded Allergies: Sulfa (Sulfonamide Antibiotics) (Verified Allergy, Unknown, Rash, 04/07/21) BLANCO DOWD M.D. Apr 30, 2021 10:07
== END 2021-04-29 10:04 | disposition other institution (70) | DRG 885 ==
LOC: M ED 07:35 → M ED INP 04-07 12:53 → M PSY 04-07 14:57
PROVIDERS: ADMIT Psychiatry & Neurology Psychiatry; ATTEND Psychiatry & Neurology Psychiatry
DX: F31.2 Bipolar disorder, current episode manic severe with psychotic features (principal); Z88.2 Allergy status to sulfonamides; F17.200 Nicotine dependence, unspecified, uncomplicated

== ENCOUNTER 2021-05-19 23:23 | Emergency (ER) | payer MEDICARE ==
[~2021-05-19] VITALS: Ht 170.2 cm; Wt 68.2 kg
[2021-05-19] MEDS ORDERED: HALOPERIDOL 5MG/ML VIAL (J1630 PER 1) IM ONE (23:50)
[2021-05-19] MEDS ORDERED: LORazepam 2 MG/ML VIAL IM ONE (23:50)
[2021-05-19] MEDS ORDERED: diphenhydrAMINE 50MG/ML VIAL (J1200) IM ONE (23:50)
[2021-05-19] MEDS ORDERED: LORazepam 2 MG/ML VIAL As Ordered ONE (23:52)
[2021-05-20 00:18] LABS: HEMATOCRIT 38.3 % (36.0-47.0); HEMOGLOBIN 12.8 g/dl (12.0-15.5); MEAN CORPUSCULAR HEMOGLOBIN 30.6 pg (27.0-33.0); MEAN CORPUSCULAR HGB CONC 33.4 g/dl (32.0-36.5); MEAN CORPUSCULAR VOLUME 91.6 fl (80.0-96.0); PLATELET COUNT, AUTOMATED 275 10^3/uL (150-450); RED BLOOD COUNT 4.18 10^6/uL (4.00-5.40); WHITE BLOOD COUNT 8.2 10^3/uL (4.0-10.0)
[2021-05-20 00:38] LABS: HCG, SERUM QUALITATIVE NEGATIVE (NEGATIVE)
[2021-05-20 00:45] LABS: ACETAMINOPHEN LEVEL < 2.0 UG/ML (10.0-30.0); ALBUMIN 3.7 GM/DL (3.2-5.2); ALT/SGPT 20 U/L (12-78); BILIRUBIN,DIRECT < 0.1 MG/DL (0.0-0.2); BILIRUBIN,TOTAL 0.2 MG/DL (0.2-1.0); BLOOD UREA NITROGEN 4 MG/DL (7-18); CALCIUM LEVEL 8.4 MG/DL (8.5-10.1); CARBON DIOXIDE LEVEL 24 MEQ/L (21-32); CHLORIDE LEVEL 109 MEQ/L (98-107); CREATININE FOR GFR 0.58 MG/DL (0.55-1.30); ETHYL ALCOHOL (ETHANOL) < 0.003 % (0.000-0.010); GLOMERULAR FILTRATION RATE > 60.0 (>58); GLUCOSE, FASTING 96 MG/DL (70-100); SALICYLATE LEVEL 6.2 MG/DL (5.0-30.0); SODIUM LEVEL 140 MEQ/L (136-145); TOTAL PROTEIN 7.2 GM/DL (6.4-8.2)
[2021-05-20 02:30] LABS: RSV AMPLIFICATION NEGATIVE (NEGATIVE)
[2021-05-20 05:04] LABS: AMPHETAMINES LEVEL URINE NEGATIVE (NEGATIVE); BARBITURATES URINE NEGATIVE (NEGATIVE); BENZODIAZEPINES URINE NEGATIVE (NEGATIVE); CANNABINOIDS URINE POSITIVE (NEGATIVE); COCAINE METABOLITE URINE NEGATIVE (NEGATIVE); METHADONE URINE NEGATIVE (NEGATIVE); OPIATES URINE NEGATIVE (NEGATIVE); PHENCYCLIDINE URINE NEGATIVE (NEGATIVE)
--- NOTE | 2021-05-20 09:28 | ECGEPIP ---
[facility] - ED Test Date: 2021-05-20 Pat Name: SIMRAN NICHOLE Department: Room: - Gender: Female Reinspector: EJTT : 1975 Requested By: LEXIE LOPEZ Order Number: [id number] Reading MD: Rocael Rodriguez Measurements Intervals [place] Rate: 73 P: 101 VT: 124 QRS: 123 QRSD: 82 T: 129 QT: 426 QTc: 469 Interpretive Statements Unacceptable tracing for interpretation: Arm lead reversal, interpretation assumes no reversal Normal sinus rhythm Electronically Signed on 05-20-2021 9:28:47 EDT by Rocael Rodriguez
[2021-05-20 16:44] VITALS: BP 123/68
== END 2021-05-20 16:47 | disposition home or self-care (01) ==
LOC: M ED 23:23
DX: R45.851 Suicidal ideations (principal); Z98.84 Bariatric surgery status; Z88.2 Allergy status to sulfonamides
CPT/HCPCS: 51701; 80048; 80076; 80143; 80307; 82077; 84443; 84703; 85027; 87631; 93005; 99285; J1200; J1630; J2060

== ENCOUNTER 2023-08-03 15:22 | Emergency (ER) | payer MEDICARE ==
[~2023-08-03] VITALS: Ht 170.2 cm; Wt 80.4 kg
[~2023-08-03 15:22] MED LIST changes: +BUPR-71 PO; -BUPR150T5 PO
[2023-08-03 15:23] VITALS: BP 118/73; TEMP 99.2; O2SAT 100
== END 2023-08-03 20:53 | disposition home or self-care (01) ==
LOC: M ED 15:22
DX: Z32.02 Encounter for pregnancy test, result negative (principal); K21.9 Gastro-esophageal reflux disease without esophagitis; F17.200 Nicotine dependence, unspecified, uncomplicated; Z88.2 Allergy status to sulfonamides; Z98.84 Bariatric surgery status

== ENCOUNTER 2023-12-16 18:46 | Emergency (ER) | payer MEDICARE ==
[~2023-12-16] VITALS: Ht 170.2 cm; Wt 79.5 kg
[2023-12-16] MEDS: NS 1,000 ML IV ONE (19:00)
[2023-12-16 19:22] LABS: BASO # 0.1 10^3/uL (0.0-0.2); EOS # 0.3 10^3/uL (0.0-0.5); EOS % 2.7 % (0.0-3.0); HEMATOCRIT 33.4 % (36.0-47.0); LYMPH % 31.5 % (24.0-44.0); MEAN CORPUSCULAR HEMOGLOBIN 28.1 pg (27.0-33.0); MEAN CORPUSCULAR HGB CONC 32.9 g/dl (32.0-36.5); MEAN CORPUSCULAR VOLUME 85.4 fl (80.0-96.0); MONO # 1.2 10^3/uL (0.0-0.8); MONO % 12.4 % (2.0-8.0); NEUTROPHILS % 52.2 % (36.0-66.0); PLATELET COUNT, AUTOMATED 265 10^3/uL (150-450); RED BLOOD COUNT 3.91 10^6/uL (4.00-5.40); WHITE BLOOD COUNT 9.6 10^3/uL (4.0-10.0)
[2023-12-16 19:36] LABS: INR 1.1; PARTIAL THROMBOPLASTIN TIME 25.3 SECONDS (24.8-34.2); PROTHROMBIN TIME 13.9 SECONDS (12.5-14.5)
[2023-12-16 19:46] LABS: LIPASE 41 U/L (12-53)
[2023-12-16 19:47] LABS: C REACTIVE PROTEIN QUANTITATIV < 0.40 MG/DL (<1.0)
[2023-12-16 19:48] LABS: ALBUMIN 4.1 G/DL (3.2-5.2); ALKALINE PHOSPHATASE 97 U/L (46-116); ALT/SGPT 48 U/L (7.0-40); AST/SGOT 58 U/L (<34); BILIRUBIN,DIRECT 0.1 MG/DL (<0.4); BILIRUBIN,TOTAL 0.5 MG/DL (0.3-1.2); BLOOD UREA NITROGEN 8 MG/DL (9-23); CALCIUM LEVEL 8.7 MG/DL (8.5-10.1); CARBON DIOXIDE LEVEL 26 MMOL/L (20-31); CHLORIDE LEVEL 104 MMOL/L (98-107); CK-MB VALUE MASS 3.9 NG/ML (<3.6); CREATININE FOR GFR 0.64 MG/DL (0.55-1.30); GLOMERULAR FILTRATION RATE > 60.0 (>58); GLUCOSE, FASTING 88 MG/DL (60-100); HCG, SERUM QUALITATIVE NEGATIVE (NEGATIVE); POTASSIUM SERUM 5.5 MMOL/L (3.5-5.1); SODIUM LEVEL 135 MMOL/L (136-145); TOTAL PROTEIN 7.1 G/DL (5.7-8.2)
[2023-12-16 19:50] LABS: FREE T4 0.97 NG/DL (0.89-1.76); THYROID STIMULATING HORMONE 2.928 uIU/ML (0.55-4.78)
[2023-12-16 19:51] LABS: CPK CREATINE PHOSPHOKINASE 426 U/L (34-145); MB/CK RELATIVE INDEX 0.91 (< OR =4)
[2023-12-16 21:51] LABS: CK-MB VALUE MASS 2.9 NG/ML (<3.6)
[2023-12-16 21:55] LABS: MB/CK RELATIVE INDEX 0.85 (< OR =4)
[2023-12-16 22:30] VITALS: BP 116/1; TEMP 98; O2SAT 99
== END 2023-12-16 22:41 | disposition home or self-care (01) ==
LOC: EDBD 18:46 → M ED 18:46
DX: R00.2 Palpitations (principal); F17.200 Nicotine dependence, unspecified, uncomplicated; Z88.2 Allergy status to sulfonamides; Z98.84 Bariatric surgery status

== ENCOUNTER → 2024-01-25 | Outpatient (REF) | payer MEDICARE ==
[2024-01-25 17:46] LABS: BASO # 0.1 10^3/uL (0.0-0.2); BASO % 1.2 % (0.0-1.0); EOS # 0.2 10^3/uL (0.0-0.5); EOS % 2.3 % (0.0-3.0); HEMATOCRIT 33.8 % (36.0-47.0); HEMOGLOBIN 10.8 g/dl (12.0-15.5); LYMPH # 1.9 10^3/uL (1.5-5.0); LYMPH % 22.9 % (24.0-44.0); MEAN CORPUSCULAR HEMOGLOBIN 28.1 pg (27.0-33.0); MEAN CORPUSCULAR VOLUME 87.8 fl (80.0-96.0); MONO # 0.8 10^3/uL (0.0-0.8); NEUTROPHILS # 5.3 10^3/uL (1.5-8.5); NEUTROPHILS % 63.2 % (36.0-66.0); PLATELET COUNT, AUTOMATED 307 10^3/uL (150-450); RED BLOOD COUNT 3.85 10^6/uL (4.00-5.40); WHITE BLOOD COUNT 8.4 10^3/uL (4.0-10.0)
[2024-01-25 18:14] LABS: CHOLESTEROL LEVEL 171 MG/DL (<200); CHOLESTEROL RISK RATIO 2.43 (<5); HDL CHOLESTEROL 70.1 MG/DL (>40); LDL CHOLESTEROL 68.7 MG/DL (<100); NON-HDL-C 100.9 MG/DL; TRIGLYCERIDES LEVEL 161 MG/DL (<150)
[2024-01-25 18:15] LABS: IRON (FE) 15 UG/DL (50-170); PERCENT SATURATION 3.4 % (13.2-45.0); TOTAL IRON BINDING CAPACITY 440 UG/DL (250-425)
[2024-01-25 18:18] LABS: FOLATE > 24.0 NG/ML (>5.4); TOTAL 25(OH) VITAMIN D 29.2 NG/ML (20.0-100.0)
[2024-01-25 18:19] LABS: VITAMIN B12 LEVEL 421 PG/ML (211-911)
[2024-01-25 18:20] LABS: HEMOGLOBIN A1c 5.2 % (4.0-6.0)
== END ==
LOC: M LAB REF 17:25
PROVIDERS: ATTEND Nurse Practitioner Family
DX: Z86.2 Personal history of diseases of the blood and blood-forming organs and certain disorders involving the immune mechanism (principal); E66.3 Overweight; E55.9 Vitamin D deficiency, unspecified; R53.83 Other fatigue

== ENCOUNTER 2024-07-06 14:40 | Observation (INO) | payer MEDICARE ==
[~2024-07-06] VITALS: Ht 170.2 cm; Wt 73.4 kg
[2024-07-06] MEDS ORDERED: OMEP-173 PO (15:13)
[2024-07-06] MEDS ORDERED: HYDR50TA70 PO (15:13)
[2024-07-06 16:03] LABS: BASO # 0.1 10^3/uL (0.0-0.2); BASO % 0.7 % (0.0-1.0); EOS # 0.1 10^3/uL (0.0-0.5); EOS % 0.7 % (0.0-3.0); HEMATOCRIT 27.9 % (36.0-47.0); HEMOGLOBIN 8.5 g/dl (12.0-15.5); LYMPH # 0.4 10^3/uL (1.5-5.0); LYMPH % 5.7 % (24.0-44.0); MEAN CORPUSCULAR HEMOGLOBIN 23.7 pg (27.0-33.0); MEAN CORPUSCULAR HGB CONC 30.5 g/dl (32.0-36.5); MEAN CORPUSCULAR VOLUME 77.7 fl (80.0-96.0); MONO # 0.6 10^3/uL (0.0-0.8); MONO % 7.9 % (2.0-8.0); NEUTROPHILS # 6.5 10^3/uL (1.5-8.5); NEUTROPHILS % 84.6 % (36.0-66.0); PLATELET COUNT, AUTOMATED 136 10^3/uL (150-450); RED BLOOD COUNT 3.59 10^6/uL (4.00-5.40); WHITE BLOOD COUNT 7.7 10^3/uL (4.0-10.0)
[2024-07-06 16:09] LABS: ERYTHROCYTE SEDIMENTATION RATE 38 mm/hr (0-20)
[2024-07-06 16:16] LABS: INR 1.11; PARTIAL THROMBOPLASTIN TIME 30.2 SECONDS (24.8-34.2)
[2024-07-06 16:31] LABS: C REACTIVE PROTEIN QUANTITATIV < 0.40 MG/DL (<1.0)
[2024-07-06 16:36] LABS: ALBUMIN 3.3 G/DL (3.2-5.2); ALKALINE PHOSPHATASE 140 U/L (46-116); ALT/SGPT 59 U/L (7.0-40); AST/SGOT 85 U/L (<34); BILIRUBIN,DIRECT 0.1 MG/DL (<0.4); BILIRUBIN,TOTAL 0.4 MG/DL (0.3-1.2); BLOOD UREA NITROGEN 6 MG/DL (9-23); CARBON DIOXIDE LEVEL 23 MMOL/L (20-31); CHLORIDE LEVEL 107 MMOL/L (98-107); CK-MB VALUE MASS 3.3 NG/ML (<3.6); CREATININE FOR GFR 0.42 MG/DL (0.55-1.30); FREE T4 0.88 NG/DL (0.89-1.76); GLOMERULAR FILTRATION RATE > 60.0 (>58); GLUCOSE, FASTING 76 MG/DL (60-100); POTASSIUM SERUM 3.5 MMOL/L (3.5-5.1); SODIUM LEVEL 135 MMOL/L (136-145); THYROID STIMULATING HORMONE 2.587 uIU/ML (0.55-4.78)
[2024-07-06 16:38] LABS: CPK CREATINE PHOSPHOKINASE 401 U/L (34-145); MB/CK RELATIVE INDEX 0.82 (< OR =4)
[2024-07-06] MEDS ORDERED: MAALOX 30 ML SUSP *UDC PO PRN (18:20)
[2024-07-06] MEDS ORDERED: MOM 30ML SUSPENSION UDC PO PRN (18:20)
[2024-07-06] MEDS: ceFAZolin SOD 2 GM in IV 1 EA IV ONE (18:39)
[2024-07-06] MEDS ORDERED: HOME MED LIST COMPLETE! XX SCH (19:05)
[2024-07-06 19:59] LABS: URINE PREG TEST NEGATIVE (NEGATIVE)
[2024-07-06] MEDS: NICOTINE 21MG/24HR 1 EA TRANSDERMAL TD SCH (20:13)
[2024-07-06] MEDS: hydrOXYzine 50 MG TAB PO PRN (21:44)
[2024-07-06 22:42] LABS: ETHYL ALCOHOL (ETHANOL) 0.134 % (0.000-0.010)
[2024-07-06 22:44] LABS: SALICYLATE LEVEL < 3.0 MG/DL (<30)
[2024-07-06 22:56] LABS: AMPHETAMINES LEVEL URINE NEGATIVE (NEGATIVE); BARBITURATES URINE NEGATIVE (NEGATIVE); BENZODIAZEPINES URINE NEGATIVE (NEGATIVE); COCAINE METABOLITE URINE NEGATIVE (NEGATIVE); METHADONE URINE NEGATIVE (NEGATIVE); OPIATES URINE NEGATIVE (NEGATIVE)
[2024-07-06 22:57] LABS: CANNABINOIDS URINE NEGATIVE (NEGATIVE); PHENCYCLIDINE URINE NEGATIVE (NEGATIVE)
[2024-07-06 23:55] VITALS: BP 134/71; TEMP 98.4; O2SAT 97
[2024-07-07] MEDS ORDERED: LORazepam 2 MG TAB PO PRN
[2024-07-07 00:13] VITALS: BP 134/71
[2024-07-07] MEDS ORDERED: LORazepam 1 MG TAB PO PRN (00:13)
[2024-07-07] MEDS ORDERED: OXAZEPAM 15MG CAP PO SCH (02:00)
[2024-07-07] MEDS: OXAZEPAM 15MG CAP PO SCH (03:58)
[2024-07-07 04:00] VITALS: BP 118/51; TEMP 98.5; O2SAT 97
[2024-07-07 06:47] LABS: BASO # 0.1 10^3/uL (0.0-0.2); BASO % 0.9 % (0.0-1.0); EOS # 0.1 10^3/uL (0.0-0.5); HEMOGLOBIN 8.9 g/dl (12.0-15.5); LYMPH # 0.7 10^3/uL (1.5-5.0); LYMPH % 9.7 % (24.0-44.0); MEAN CORPUSCULAR HEMOGLOBIN 23.8 pg (27.0-33.0); MEAN CORPUSCULAR HGB CONC 30.7 g/dl (32.0-36.5); MEAN CORPUSCULAR VOLUME 77.5 fl (80.0-96.0); MONO # 0.6 10^3/uL (0.0-0.8); MONO % 8.9 % (2.0-8.0); NEUTROPHILS # 5.5 10^3/uL (1.5-8.5); NEUTROPHILS % 79.1 % (36.0-66.0); PLATELET COUNT, AUTOMATED 149 10^3/uL (150-450); RED BLOOD COUNT 3.74 10^6/uL (4.00-5.40)
[2024-07-07 07:05] LABS: IRON (FE) 74 UG/DL (50-170); PERCENT SATURATION 17.5 % (13.2-45.0); TOTAL IRON BINDING CAPACITY 424 UG/DL (250-425)
[2024-07-07 07:11] LABS: ALBUMIN 2.9 G/DL (3.2-5.2); ALKALINE PHOSPHATASE 135 U/L (46-116); ALT/SGPT 50 U/L (7.0-40); AST/SGOT 63 U/L (<34); BILIRUBIN,TOTAL 0.5 MG/DL (0.3-1.2); BLOOD UREA NITROGEN 6 MG/DL (9-23); CALCIUM LEVEL 8.6 MG/DL (8.5-10.1); CARBON DIOXIDE LEVEL 27 MMOL/L (20-31); CHLORIDE LEVEL 105 MMOL/L (98-107); CREATININE FOR GFR 0.43 MG/DL (0.55-1.30); FERRITIN 19.7 NG/ML (7.3-270.7); GLOMERULAR FILTRATION RATE > 60.0 (>58); GLUCOSE, FASTING 85 MG/DL (60-100); POTASSIUM SERUM 3.7 MMOL/L (3.5-5.1); SODIUM LEVEL 138 MMOL/L (136-145); TOTAL PROTEIN 6.5 G/DL (5.7-8.2)
[2024-07-07] MEDS: buPROPion **SR TABLET** (ZYBAN) 150MG PO SCH (09:35)
[2024-07-07] MEDS: ESCITALOPRAM OXALATE 10 MG TAB (LEXAPRO) PO SCH (09:35)
[2024-07-07] MEDS: FOLIC ACID 1MG TAB PO SCH (09:35)
[2024-07-07] MEDS: cefTRIAXone SOD 2 GM in D5W MINI-BAG PLUS 50 ML IV SCH (09:36)
[2024-07-07] MEDS: MULTIVITAMINS/MINERALS THERAP 1 TAB PO SCH (09:36)
[2024-07-07] MEDS: HEPARIN SOD (PORCINE) 5000UNITS/ML 1ML VIAL/SYRINGE SC SCH (09:36)
[2024-07-07] MEDS: THIAMINE 100 MG TAB PO SCH (09:36)
[2024-07-07] MEDS: OMEPRAZOLE 20MG CAP PO SCH (09:36)
[2024-07-07 12:07] VITALS: BP 128/68; TEMP 97.2; O2SAT 99
[2024-07-07 21:04] VITALS: BP 126/72; TEMP 98; O2SAT 100
[2024-07-07] MEDS: ACETAMINOPHEN 325 MG TAB PO PRN (21:08)
[2024-07-07 22:00] VITALS: BP 126/72
[2024-07-07] MEDS: NICOTINE 14 MG/24 HR TRANSDERMAL TD PRN (22:04)
[2024-07-07 22:37] LABS: BASO # 0.1 10^3/uL (0.0-0.2); BASO % 0.4 % (0.0-1.0); EOS # 0.2 10^3/uL (0.0-0.5); EOS % 1.8 % (0.0-3.0); HEMOGLOBIN 8.8 g/dl (12.0-15.5); LYMPH # 1.3 10^3/uL (1.5-5.0); LYMPH % 11.4 % (24.0-44.0); MEAN CORPUSCULAR HGB CONC 30.3 g/dl (32.0-36.5); MONO # 0.7 10^3/uL (0.0-0.8); MONO % 6.1 % (2.0-8.0); NEUTROPHILS # 8.9 10^3/uL (1.5-8.5); NEUTROPHILS % 79.9 % (36.0-66.0); PLATELET COUNT, AUTOMATED 153 10^3/uL (150-450); RED BLOOD COUNT 3.67 10^6/uL (4.00-5.40); WHITE BLOOD COUNT 11.2 10^3/uL (4.0-10.0)
[2024-07-07 22:44] LABS: ERYTHROCYTE SEDIMENTATION RATE 44 mm/hr (0-20)
[2024-07-08 01:55] LABS: ALBUMIN 2.9 G/DL (3.2-5.2); ALKALINE PHOSPHATASE 140 U/L (46-116); ALT/SGPT 53 U/L (7.0-40); AST/SGOT 62 U/L (<34); BLOOD UREA NITROGEN 9 MG/DL (9-23); CALCIUM LEVEL 8.5 MG/DL (8.5-10.1); CARBON DIOXIDE LEVEL 28 MMOL/L (20-31); CHLORIDE LEVEL 108 MMOL/L (98-107); CREATININE FOR GFR 0.47 MG/DL (0.55-1.30); GLOMERULAR FILTRATION RATE > 60.0 (>58); GLUCOSE, FASTING 83 MG/DL (60-100); MAGNESIUM LEVEL 2.1 MG/DL (1.8-2.4); SODIUM LEVEL 140 MMOL/L (136-145); TOTAL PROTEIN 6.5 G/DL (5.7-8.2)
[2024-07-08 02:29] LABS: BILIRUBIN,TOTAL 0.2 MG/DL (0.3-1.2)
[2024-07-08 03:08] VITALS: BP 107/61; TEMP 97.6; O2SAT 97
[2024-07-08] MEDS: DOXYCYCLINE HYCLATE 100MG TABLET PO SCH (03:09)
[2024-07-08 04:03] LABS: INR 1.13; PROTHROMBIN TIME 14.2 SECONDS (12.5-14.5)
[2024-07-08 06:08] LABS: BASO % 0.6 % (0.0-1.0); EOS # 0.2 10^3/uL (0.0-0.5); EOS % 3.1 % (0.0-3.0); HEMATOCRIT 28.9 % (36.0-47.0); HEMOGLOBIN 8.7 g/dl (12.0-15.5); LYMPH # 1.3 10^3/uL (1.5-5.0); LYMPH % 18.3 % (24.0-44.0); MEAN CORPUSCULAR HEMOGLOBIN 23.6 pg (27.0-33.0); MEAN CORPUSCULAR HGB CONC 30.1 g/dl (32.0-36.5); MEAN CORPUSCULAR VOLUME 78.5 fl (80.0-96.0); MONO # 0.4 10^3/uL (0.0-0.8); MONO % 5.6 % (2.0-8.0); NEUTROPHILS # 4.9 10^3/uL (1.5-8.5); NEUTROPHILS % 72.1 % (36.0-66.0); PLATELET COUNT, AUTOMATED 147 10^3/uL (150-450); RED BLOOD COUNT 3.68 10^6/uL (4.00-5.40); WHITE BLOOD COUNT 6.8 10^3/uL (4.0-10.0)
[2024-07-08 06:34] LABS: ALBUMIN 2.6 G/DL (3.2-5.2); ALKALINE PHOSPHATASE 118 U/L (46-116); ALT/SGPT 109 U/L (7.0-40); AST/SGOT 167 U/L (<34); BILIRUBIN,TOTAL 0.3 MG/DL (0.3-1.2); BLOOD UREA NITROGEN 8 MG/DL (9-23); CALCIUM LEVEL 8.4 MG/DL (8.5-10.1); CARBON DIOXIDE LEVEL 26 MMOL/L (20-31); CHLORIDE LEVEL 108 MMOL/L (98-107); CREATININE FOR GFR 0.48 MG/DL (0.55-1.30); GLOMERULAR FILTRATION RATE > 60.0 (>58); GLUCOSE, FASTING 80 MG/DL (60-100); MAGNESIUM LEVEL 2.1 MG/DL (1.8-2.4); POTASSIUM SERUM 3.6 MMOL/L (3.5-5.1); SODIUM LEVEL 141 MMOL/L (136-145); TOTAL PROTEIN 6.1 G/DL (5.7-8.2)
[2024-07-08 06:52] LABS: HEPATITIS B SURFACE ANTIGEN NEGATIVE (NEGATIVE)
[2024-07-08 07:11] LABS: HEPATITIS C VIRUS ABY INDEX 0.05 INDEX (<0.8)
[2024-07-08 07:12] LABS: HEPATITIS B CORE ANTIBODY IGM NEGATIVE (NEGATIVE)
[2024-07-08 12:00] VITALS: BP 104/57; TEMP 97.8; O2SAT 97
[2024-07-08 20:24] VITALS: BP 131/68; TEMP 96.9; O2SAT 100
[2024-07-08 20:36] VITALS: BP 131/68
[2024-07-09 03:55] VITALS: BP 120/66; TEMP 97.3; O2SAT 98
[2024-07-09 04:05] VITALS: TEMP 97.6; O2SAT 98
[2024-07-09] MEDS: OXAZEPAM 10MG CAP PO SCH (06:05)
[2024-07-09 08:32] VITALS: BP 121/68
[2024-07-09] MEDS ORDERED: BISACODYL 10MG SUPP PR PRN (10:05)
[2024-07-09] MEDS: SENOKOT S TAB PO SCH (10:30)
[2024-07-09 11:49] VITALS: BP 144/76; TEMP 97.8; O2SAT 99
[2024-07-09] MEDS ORDERED: ACETAMINOPHEN TAB 650MG DOSE (2X325MG) PO PRN (12:39)
[2024-07-09 19:52] VITALS: BP 114/64; TEMP 97.6; O2SAT 100
[2024-07-09 20:00] VITALS: BP 114/64
[2024-07-10 03:57] VITALS: BP 120/71; TEMP 98; O2SAT 100
[2024-07-10 04:00] VITALS: BP 120/71
[2024-07-10 08:21] LABS: BASO # 0.1 10^3/uL (0.0-0.2); BASO % 1.2 % (0.0-1.0); EOS # 0.2 10^3/uL (0.0-0.5); EOS % 3.2 % (0.0-3.0); HEMATOCRIT 30.2 % (36.0-47.0); LYMPH # 1.4 10^3/uL (1.5-5.0); LYMPH % 24.3 % (24.0-44.0); MEAN CORPUSCULAR HEMOGLOBIN 23.9 pg (27.0-33.0); MEAN CORPUSCULAR HGB CONC 29.8 g/dl (32.0-36.5); MEAN CORPUSCULAR VOLUME 80.3 fl (80.0-96.0); MONO # 0.6 10^3/uL (0.0-0.8); MONO % 10.2 % (2.0-8.0); NEUTROPHILS # 3.6 10^3/uL (1.5-8.5); NEUTROPHILS % 60.8 % (36.0-66.0); PLATELET COUNT, AUTOMATED 204 10^3/uL (150-450); RED BLOOD COUNT 3.76 10^6/uL (4.00-5.40); WHITE BLOOD COUNT 5.9 10^3/uL (4.0-10.0)
[2024-07-10 08:49] LABS: ALKALINE PHOSPHATASE 118 U/L (46-116); ALT/SGPT 120 U/L (7.0-40); AST/SGOT 81 U/L (<34); BILIRUBIN,TOTAL 0.3 MG/DL (0.3-1.2); BLOOD UREA NITROGEN 9 MG/DL (9-23); CALCIUM LEVEL 8.7 MG/DL (8.5-10.1); CARBON DIOXIDE LEVEL 26 MMOL/L (20-31); CHLORIDE LEVEL 111 MMOL/L (98-107); GLOMERULAR FILTRATION RATE > 60.0 (>58); GLUCOSE, FASTING 84 MG/DL (60-100); MAGNESIUM LEVEL 2.1 MG/DL (1.8-2.4); POTASSIUM SERUM 3.9 MMOL/L (3.5-5.1); SODIUM LEVEL 140 MMOL/L (136-145); TOTAL PROTEIN 6.8 G/DL (5.7-8.2)
[2024-07-10 12:00] VITALS: BP 123/71; TEMP 98.2; O2SAT 99
[2024-07-10 19:52] VITALS: BP 130/78; TEMP 97.3; O2SAT 99
[2024-07-10 21:11] VITALS: BP 130/78
[2024-07-11 04:13] VITALS: BP 105/63; TEMP 97.8; O2SAT 98
[2024-07-11 06:39] VITALS: BP 129/74; TEMP 97.2; O2SAT 99
[2024-07-11] MEDS ORDERED: PROBCAP14 PO (11:50)
[2024-07-11] MEDS ORDERED: CEFD1CAP9 PO (11:50)
== END 2024-07-11 13:15 | disposition home or self-care (01) ==
LOC: EDBD 14:40 → M ED 14:40 → INTOOBSV 18:16 → M ED INP 18:16 → M MS4PR 23:55 → M MS5PR 07-11 06:45
PROVIDERS: ADMIT Student in an Organized Health Care Education/Training Program; ATTEND Student in an Organized Health Care Education/Training Program
DX: L03.115 Cellulitis of right lower limb (principal); K76.0 Fatty (change of) liver, not elsewhere classified; R74.01 Elevation of levels of liver transaminase levels; D50.8 Other iron deficiency anemias; F41.9 Anxiety disorder, unspecified; F32.A Depression, unspecified; K21.9 Gastro-esophageal reflux disease without esophagitis; I10 Essential (primary) hypertension; F17.218 Nicotine dependence, cigarettes, with other nicotine-induced disorders; Z98.84 Bariatric surgery status; Z79.899 Other long term (current) drug therapy; Z88.2 Allergy status to sulfonamides; E66.01 Morbid (severe) obesity due to excess calories; Z79.2 Long term (current) use of antibiotics
CPT/HCPCS: 36415; 71046; 76705; 80048; 80053; 80074; 80076; 80143; 80307; 81001; 82077; 82550; 82553; 82728; 83550; 83735; 83880; 84439; 84443; 84484; 84703; 85025; 85610; 85652; 85730; 86140; 87040; 87086; 93005; 93041; 93970; 94760; 96365; 96366; 99285; G0378; J0690; J0696

== ENCOUNTER → 2024-07-18 | Outpatient (REF) | payer MEDICARE ==
[~2024-07-18] MED LIST changes: +CEFD1CAP9 PO; +HYDR50TA70 PO; +OMEP-173 PO; +PROBCAP14 PO
[2024-07-18 19:26] LABS: BASO # 0.1 10^3/uL (0.0-0.2); BASO % 1.8 % (0.0-1.0); EOS # 0.2 10^3/uL (0.0-0.5); EOS % 2.4 % (0.0-3.0); HEMATOCRIT 28.4 % (36.0-47.0); HEMOGLOBIN 8.6 g/dl (12.0-15.5); LYMPH # 1.8 10^3/uL (1.5-5.0); LYMPH % 27.4 % (24.0-44.0); MEAN CORPUSCULAR HEMOGLOBIN 24.1 pg (27.0-33.0); MEAN CORPUSCULAR HGB CONC 30.3 g/dl (32.0-36.5); MEAN CORPUSCULAR VOLUME 79.6 fl (80.0-96.0); MONO # 0.7 10^3/uL (0.0-0.8); MONO % 11.2 % (2.0-8.0); NEUTROPHILS # 3.7 10^3/uL (1.5-8.5); NEUTROPHILS % 56.9 % (36.0-66.0); PLATELET COUNT, AUTOMATED 405 10^3/uL (150-450); RED BLOOD COUNT 3.57 10^6/uL (4.00-5.40); WHITE BLOOD COUNT 6.6 10^3/uL (4.0-10.0)
[2024-07-18 19:40] LABS: ERYTHROCYTE SEDIMENTATION RATE 29 mm/hr (0-20)
[2024-07-18 19:48] LABS: BLOOD UREA NITROGEN 8 MG/DL (9-23); CALCIUM LEVEL 8.5 MG/DL (8.5-10.1); CARBON DIOXIDE LEVEL 25 MMOL/L (20-31); CHLORIDE LEVEL 109 MMOL/L (98-107); CREATININE FOR GFR 0.55 MG/DL (0.55-1.30); GLOMERULAR FILTRATION RATE > 60.0 (>58); GLUCOSE, FASTING 71 MG/DL (60-100); POTASSIUM SERUM 4.6 MMOL/L (3.5-5.1); SODIUM LEVEL 141 MMOL/L (136-145)
[2024-07-18 19:50] LABS: FERRITIN 10.3 NG/ML (7.3-270.7)
== END ==
LOC: M LAB REF 17:42
PROVIDERS: ATTEND Nurse Practitioner Family
DX: Z86.2 Personal history of diseases of the blood and blood-forming organs and certain disorders involving the immune mechanism (principal); L03.119 Cellulitis of unspecified part of limb; Z11.9 Encounter for screening for infectious and parasitic diseases, unspecified

== ENCOUNTER → 2024-07-24 | Outpatient (REF) | payer MEDICARE, MEDICAID ==
[2024-07-24 17:46] LABS: BASO # 0.1 10^3/uL (0.0-0.2); BASO % 1.6 % (0.0-1.0); EOS # 0.2 10^3/uL (0.0-0.5); EOS % 2.7 % (0.0-3.0); HEMATOCRIT 28.3 % (36.0-47.0); HEMOGLOBIN 8.7 g/dl (12.0-15.5); LYMPH # 1.6 10^3/uL (1.5-5.0); MEAN CORPUSCULAR HEMOGLOBIN 23.9 pg (27.0-33.0); MEAN CORPUSCULAR HGB CONC 30.7 g/dl (32.0-36.5); MEAN CORPUSCULAR VOLUME 77.7 fl (80.0-96.0); MONO # 0.6 10^3/uL (0.0-0.8); MONO % 6.6 % (2.0-8.0); NEUTROPHILS # 6.3 10^3/uL (1.5-8.5); NEUTROPHILS % 70.9 % (36.0-66.0); PLATELET COUNT, AUTOMATED 396 10^3/uL (150-450); RED BLOOD COUNT 3.64 10^6/uL (4.00-5.40); WHITE BLOOD COUNT 8.8 10^3/uL (4.0-10.0)
[2024-07-24 17:55] LABS: ERYTHROCYTE SEDIMENTATION RATE 28 mm/hr (0-20)
== END ==
LOC: M LAB REF 17:13
PROVIDERS: ATTEND Nurse Practitioner Family
DX: L03.119 Cellulitis of unspecified part of limb (principal); D64.9 Anemia, unspecified

== ENCOUNTER → 2024-07-28 | Outpatient (REF) | payer MEDICARE, MEDICAID ==
[2024-07-28 16:58] LABS: BASO # 0.1 10^3/uL (0.0-0.2); EOS # 0.2 10^3/uL (0.0-0.5); EOS % 3.8 % (0.0-3.0); HEMATOCRIT 29.9 % (36.0-47.0); HEMOGLOBIN 9.1 g/dl (12.0-15.5); LYMPH # 1.6 10^3/uL (1.5-5.0); LYMPH % 26.1 % (24.0-44.0); MEAN CORPUSCULAR HEMOGLOBIN 24.1 pg (27.0-33.0); MEAN CORPUSCULAR HGB CONC 30.4 g/dl (32.0-36.5); MEAN CORPUSCULAR VOLUME 79.1 fl (80.0-96.0); MONO # 0.7 10^3/uL (0.0-0.8); NEUTROPHILS # 3.6 10^3/uL (1.5-8.5); NEUTROPHILS % 57.8 % (36.0-66.0); PLATELET COUNT, AUTOMATED 262 10^3/uL (150-450); RED BLOOD COUNT 3.78 10^6/uL (4.00-5.40); WHITE BLOOD COUNT 6.3 10^3/uL (4.0-10.0)
[2024-07-28 17:06] LABS: ERYTHROCYTE SEDIMENTATION RATE 23 mm/hr (0-20)
== END ==
LOC: M LAB REF 16:18
PROVIDERS: ATTEND Physician Assistant
DX: L03.119 Cellulitis of unspecified part of limb (principal); D64.9 Anemia, unspecified

== ENCOUNTER 2024-08-06 15:07 | Emergency (ER) | payer MEDICARE, MEDICAID ==
[~2024-08-06] VITALS: Ht 162.6 cm; Wt 80.2 kg
[2024-08-06 15:44] LABS: BASO # 0.1 10^3/uL (0.0-0.2); BASO % 1.3 % (0.0-1.0); EOS # 0.3 10^3/uL (0.0-0.5); EOS % 4.2 % (0.0-3.0); HEMATOCRIT 27.8 % (36.0-47.0); HEMOGLOBIN 8.7 g/dl (12.0-15.5); LYMPH # 1.8 10^3/uL (1.5-5.0); LYMPH % 29.8 % (24.0-44.0); MEAN CORPUSCULAR HGB CONC 31.3 g/dl (32.0-36.5); MEAN CORPUSCULAR VOLUME 76.6 fl (80.0-96.0); MONO # 0.7 10^3/uL (0.0-0.8); MONO % 11.6 % (2.0-8.0); NEUTROPHILS # 3.1 10^3/uL (1.5-8.5); NEUTROPHILS % 52.6 % (36.0-66.0); PLATELET COUNT, AUTOMATED 200 10^3/uL (150-450); RED BLOOD COUNT 3.63 10^6/uL (4.00-5.40)
[2024-08-06 15:50] LABS: PROTHROMBIN TIME 13.5 SECONDS (12.5-14.5)
[2024-08-06 15:58] LABS: CK-MB VALUE MASS 2.1 NG/ML (<3.6)
[2024-08-06 15:59] LABS: CPK CREATINE PHOSPHOKINASE 269 U/L (34-145); MB/CK RELATIVE INDEX 0.78 (< OR =4); VENOUS BASE EXCESS 0.6 (-2.0-2.0); VENOUS O2 SATURATION 97.5 % (60.0-80.0); VENOUS PARTIAL PRESSURE CO2 44.9 mmHg (38.0-50.0); VENOUS PARTIAL PRESSURE O2 105.9 mmHg (30.0-50.0); VENOUS TOTAL CO2 27.3 MMOL/L (24.0-28.0)
[2024-08-06 16:03] LABS: ALBUMIN 3.5 G/DL (3.2-5.2); ALKALINE PHOSPHATASE 128 U/L (35-104); ALT/SGPT 23 U/L (7.0-40); AST/SGOT 32 U/L (<34); BILIRUBIN,DIRECT < 0.1 MG/DL (<0.4); BILIRUBIN,TOTAL 0.2 MG/DL (0.3-1.2); BLOOD UREA NITROGEN < 5 MG/DL (9-23); CALCIUM LEVEL 8.9 MG/DL (8.5-10.1); CARBON DIOXIDE LEVEL 25 MMOL/L (20-31); CHLORIDE LEVEL 109 MMOL/L (98-107); CREATININE FOR GFR 0.46 MG/DL (0.55-1.30); GLOMERULAR FILTRATION RATE > 60.0 (>58); GLUCOSE, FASTING 78 MG/DL (60-100); POTASSIUM SERUM 4.1 MMOL/L (3.5-5.1); SODIUM LEVEL 141 MMOL/L (136-145); TOTAL PROTEIN 7.3 G/DL (5.7-8.2)
[2024-08-06 17:25] LABS: CK-MB VALUE MASS 2.2 NG/ML (<3.6)
[2024-08-06 17:26] LABS: CPK CREATINE PHOSPHOKINASE 247 U/L (34-145); MB/CK RELATIVE INDEX 0.89 (< OR =4)
[2024-08-06] MEDS: ceFAZolin SOD 1 GM in DEXTROSE 5% (D5W) ADV/MINI-BAG 50 ML IV ONE (17:35)
[2024-08-06 18:00] VITALS: BP 136/75; TEMP 96.9; O2SAT 98
[2024-08-06] MEDS ORDERED: FURO20TA2 PO (18:09)
[2024-08-06] MEDS ORDERED: POTA-151 PO (18:11)
[2024-08-06 18:38] LABS: ERYTHROCYTE SEDIMENTATION RATE 27 mm/hr (0-20)
[2024-08-06 18:39] LABS: C REACTIVE PROTEIN QUANTITATIV < 0.40 MG/DL (<1.0)
[2024-08-06 18:47] LABS: PROCALCITONIN <0.04 ng/ml
== END 2024-08-06 18:22 | disposition left against medical advice (07) ==
LOC: EDBD 15:07 → M ED 15:07
DX: R06.02 Shortness of breath (principal); I10 Essential (primary) hypertension; F32.A Depression, unspecified; F41.9 Anxiety disorder, unspecified; F10.10 Alcohol abuse, uncomplicated; F17.200 Nicotine dependence, unspecified, uncomplicated; M19.90 Unspecified osteoarthritis, unspecified site; D50.9 Iron deficiency anemia, unspecified; Z98.84 Bariatric surgery status; Z88.2 Allergy status to sulfonamides; Z79.899 Other long term (current) drug therapy; Z53.9 Procedure and treatment not carried out, unspecified reason

== ENCOUNTER 2024-08-16 06:56 | Emergency (ER) | payer MEDICARE, MEDICAID ==
[~2024-08-16] VITALS: Ht 170.2 cm; Wt 77.6 kg
[~2024-08-16 06:56] MED LIST changes: +FURO20TA2 PO; +POTA-151 PO
[2024-08-16 10:01] VITALS: BP 106/58; TEMP 98.5; O2SAT 99
== END 2024-08-16 10:04 | disposition home or self-care (01) ==
LOC: M ED 06:56
DX: G56.32 Lesion of radial nerve, left upper limb (principal); I10 Essential (primary) hypertension; D50.9 Iron deficiency anemia, unspecified; F41.9 Anxiety disorder, unspecified; F10.10 Alcohol abuse, uncomplicated; F32.A Depression, unspecified; F17.200 Nicotine dependence, unspecified, uncomplicated; Z79.899 Other long term (current) drug therapy; Z88.2 Allergy status to sulfonamides; Z98.84 Bariatric surgery status

== ENCOUNTER 2024-10-04 14:01 | Emergency (ER) | payer MEDICARE, MEDICAID ==
[~2024-10-04] VITALS: Ht 170.2 cm; Wt 80.2 kg
[2024-10-04 14:45] LABS: BASO # 0.1 10^3/uL (0.0-0.2); BASO % 1.7 % (0.0-1.0); EOS # 0.2 10^3/uL (0.0-0.5); EOS % 2.6 % (0.0-3.0); HEMATOCRIT 25.9 % (36.0-47.0); HEMOGLOBIN 8.1 g/dl (12.0-15.5); LYMPH # 1.5 10^3/uL (1.5-5.0); MEAN CORPUSCULAR HEMOGLOBIN 22.7 pg (27.0-33.0); MEAN CORPUSCULAR HGB CONC 31.3 g/dl (32.0-36.5); MEAN CORPUSCULAR VOLUME 72.5 fl (80.0-96.0); MONO # 0.8 10^3/uL (0.0-0.8); MONO % 13.9 % (2.0-8.0); NEUTROPHILS # 3.3 10^3/uL (1.5-8.5); NEUTROPHILS % 56.5 % (36.0-66.0); PLATELET COUNT, AUTOMATED 229 10^3/uL (150-450); RED BLOOD COUNT 3.57 10^6/uL (4.00-5.40); WHITE BLOOD COUNT 5.8 10^3/uL (4.0-10.0)
[2024-10-04 15:14] LABS: ALBUMIN 3.5 G/DL (3.2-5.2); ALKALINE PHOSPHATASE 125 U/L (35-104); ALT/SGPT 34 U/L (7.0-40); AST/SGOT 48 U/L (<34); BILIRUBIN,TOTAL 0.3 MG/DL (0.3-1.2); BLOOD UREA NITROGEN 7 MG/DL (9-23); CALCIUM LEVEL 8.5 MG/DL (8.5-10.1); CARBON DIOXIDE LEVEL 24 MMOL/L (20-31); CHLORIDE LEVEL 110 MMOL/L (98-107); CREATININE FOR GFR 0.45 MG/DL (0.55-1.30); GLOMERULAR FILTRATION RATE > 60.0 (>58); GLUCOSE, FASTING 85 MG/DL (60-100); POTASSIUM SERUM 3.8 MMOL/L (3.5-5.1); SODIUM LEVEL 142 MMOL/L (136-145); TOTAL PROTEIN 7.4 G/DL (5.7-8.2)
[2024-10-04 15:45] VITALS: BP 113/63; TEMP 97.8; O2SAT 98
[2024-10-04] MEDS ORDERED: CEPH500C PO (15:53)
== END 2024-10-04 16:06 | disposition home or self-care (01) ==
LOC: EDBD 14:01 → M ED 14:01
DX: L03.115 Cellulitis of right lower limb (principal); R60.0 Localized edema; R06.02 Shortness of breath; R51.9 Headache, unspecified; I10 Essential (primary) hypertension; F17.200 Nicotine dependence, unspecified, uncomplicated; F41.9 Anxiety disorder, unspecified; F32.A Depression, unspecified; F10.10 Alcohol abuse, uncomplicated; Z79.2 Long term (current) use of antibiotics; Z79.899 Other long term (current) drug therapy; Z88.2 Allergy status to sulfonamides

== ENCOUNTER → 2024-12-05 | Outpatient (REF) | payer MEDICARE, MEDICAID ==
[~2024-12-05] MED LIST changes: +CEPH500C PO
[2024-12-05 19:08] LABS: BASO # 0.1 10^3/uL (0.0-0.2); BASO % 1.4 % (0.0-1.0); EOS # 0.2 10^3/uL (0.0-0.5); EOS % 2.3 % (0.0-3.0); HEMATOCRIT 29.5 % (36.0-47.0); HEMOGLOBIN 8.6 g/dl (12.0-15.5); LYMPH # 1.8 10^3/uL (1.5-5.0); LYMPH % 22.3 % (24.0-44.0); MEAN CORPUSCULAR HEMOGLOBIN 21.8 pg (27.0-33.0); MEAN CORPUSCULAR HGB CONC 29.2 g/dl (32.0-36.5); MEAN CORPUSCULAR VOLUME 74.9 fl (80.0-96.0); MONO # 1.1 10^3/uL (0.0-0.8); MONO % 13.2 % (2.0-8.0); NEUTROPHILS # 4.8 10^3/uL (1.5-8.5); NEUTROPHILS % 60.4 % (36.0-66.0); PLATELET COUNT, AUTOMATED 205 10^3/uL (150-450); RED BLOOD COUNT 3.94 10^6/uL (4.00-5.40); WHITE BLOOD COUNT 7.9 10^3/uL (4.0-10.0)
[2024-12-05 19:24] LABS: ERYTHROCYTE SEDIMENTATION RATE 83 mm/hr (0-20)
[2024-12-05 19:37] LABS: ALBUMIN 3.4 G/DL (3.2-5.2); ALKALINE PHOSPHATASE 112 U/L (35-104); ALT/SGPT 28 U/L (7.0-40); AST/SGOT 23 U/L (<34); BILIRUBIN,DIRECT < 0.1 MG/DL (<0.4); BILIRUBIN,TOTAL 0.2 MG/DL (0.3-1.2); BLOOD UREA NITROGEN 8 MG/DL (9-23); CALCIUM LEVEL 8.9 MG/DL (8.5-10.1); CARBON DIOXIDE LEVEL 24 MMOL/L (20-31); CHLORIDE LEVEL 108 MMOL/L (98-107); GLOMERULAR FILTRATION RATE > 60.0 (>58); GLUCOSE, FASTING 71 MG/DL (60-100); POTASSIUM SERUM 4.3 MMOL/L (3.5-5.1); SODIUM LEVEL 143 MMOL/L (136-145); TOTAL PROTEIN 7.8 G/DL (5.7-8.2)
== END ==
LOC: M LAB REF 17:30
PROVIDERS: ATTEND Nurse Practitioner Family
DX: L03.119 Cellulitis of unspecified part of limb (principal); D64.9 Anemia, unspecified; R74.01 Elevation of levels of liver transaminase levels

== ENCOUNTER 2025-01-09 10:51 | Emergency (ER) | payer MEDICARE, MEDICAID ==
[~2025-01-09] VITALS: Ht 170.2 cm; Wt 76.2 kg
[2025-01-09 13:55] VITALS: BP 108/54; TEMP 98.7; O2SAT 100
[2025-01-09] MEDS ORDERED: ONDA-282 PO (14:02)
== END 2025-01-09 14:07 | disposition home or self-care (01) ==
LOC: M ED 10:51
DX: R11.0 Nausea (principal); Z32.02 Encounter for pregnancy test, result negative; Z79.83 Long term (current) use of bisphosphonates; Z79.899 Other long term (current) drug therapy; Z88.2 Allergy status to sulfonamides

== ENCOUNTER 2025-05-13 14:14 | Inpatient (IN) | payer MEDICARE, MEDICAID ==
[2025-05-13] VITALS (9 sets, daily range): BP systolic 91–123; BP diastolic 51–74; TEMP 97.3–98.9; O2SAT 99–100
[~2025-05-13] VITALS: Ht 170.2 cm; Wt 84.8 kg
[~2025-05-13 14:14] MED LIST changes: +ONDA-282 PO
[2025-05-13 15:48] LABS: C REACTIVE PROTEIN QUANTITATIV 2.75 MG/DL (<1.0); CALCIUM LEVEL 7.2 MG/DL (8.5-10.1); CARBON DIOXIDE LEVEL 19 MMOL/L (20-31); CHLORIDE LEVEL 110 MMOL/L (98-107); CREATININE FOR GFR 0.56 MG/DL (0.55-1.30); GLOMERULAR FILTRATION RATE > 90.0 (>58); POTASSIUM SERUM 4.0 MMOL/L (3.5-5.1); SODIUM LEVEL 142 MMOL/L (136-145)
[2025-05-13 16:03] LABS: BASO # 0.0 10^3/uL (0.0-0.2); BASO % 0.1 % (0.0-1.0); EOS # 0.1 10^3/uL (0.0-0.5); EOS % 1.2 % (0.0-3.0); LYMPH # 1.8 10^3/uL (1.5-5.0); LYMPH % 22.0 % (24.0-44.0); MONO # 0.9 10^3/uL (0.0-0.8); MONO % 10.5 % (2.0-8.0); NEUTROPHILS # 5.3 10^3/uL (1.5-8.5); NEUTROPHILS % 65.3 % (36.0-66.0); PLATELET COUNT, AUTOMATED 176 10^3/uL (150-450)
[2025-05-13 16:31] LABS: ALT/SGPT 172 U/L (7.0-40); AST/SGOT 271 U/L (<34); MAGNESIUM LEVEL 2.1 MG/DL (1.8-2.4)
[2025-05-13] MEDS ORDERED: ISOVUE-370 76% 100 ML VIAL As Ordered ONE (16:43)
[2025-05-13 16:56] LABS: CK-MB VALUE MASS < 1.0 NG/ML (<3.6)
[2025-05-13 16:57] LABS: CPK CREATINE PHOSPHOKINASE 70 U/L (34-145)
[2025-05-13 17:13] LABS: BASO # 0.0 10^3/uL (0.0-0.2); BASO % 0.1 % (0.0-1.0); EOS # 0.1 10^3/uL (0.0-0.5); EOS % 1.9 % (0.0-3.0); LYMPH # 1.8 10^3/uL (1.5-5.0); LYMPH % 24.2 % (24.0-44.0); MONO # 0.8 10^3/uL (0.0-0.8); MONO % 10.2 % (2.0-8.0); NEUTROPHILS # 4.7 10^3/uL (1.5-8.5); NEUTROPHILS % 63.2 % (36.0-66.0); PLATELET COUNT, AUTOMATED 197 10^3/uL (150-450)
[2025-05-13 17:15] LABS: VENOUS BASE EXCESS -6.6 (-2.0-2.0); VENOUS HCO3 18.3 MMOL/L (23.0-27.0); VENOUS O2 SATURATION 87.7 % (60.0-80.0); VENOUS PARTIAL PRESSURE CO2 32.9 mmHg (38.0-50.0); VENOUS PARTIAL PRESSURE O2 63.8 mmHg (30.0-50.0); VENOUS PH 7.363 UNITS (7.330-7.430); VENOUS STANDARD HCO3 18.8 MMOL/L; VENOUS TOTAL CO2 19.3 MMOL/L (24.0-28.0)
[2025-05-13 17:29] LABS: INR 1.44
[2025-05-13 17:42] LABS: CK-MB VALUE MASS 1.1 NG/ML (<3.6)
[2025-05-13 17:44] LABS: CPK CREATINE PHOSPHOKINASE 84.0 U/L (34-145); MB/CK RELATIVE INDEX 1.3 (< OR =4)
[2025-05-13 20:05] LABS: IRON (FE) 9 UG/DL (50-170); PERCENT SATURATION 2.0 % (13.2-45.0)
[2025-05-13 20:07] LABS: VITAMIN B12 LEVEL 743 PG/ML (211-911)
[2025-05-13] MEDS ORDERED: HOME MED LIST COMPLETE! XX SCH (21:05)
[2025-05-13] MEDS ORDERED: MOM 30 ML SUSPENSION UDC PO PRN (21:55)
[2025-05-13] MEDS ORDERED: MAALOX 30 ML SUSP *UDC PO PRN (21:55)
[2025-05-13] MEDS: NICOTINE 14 MG/24 HR TRANSDERMAL TD ONE (22:55)
[2025-05-13] MEDS: FUROSEMIDE 20 MG/2 ML VIAL IV ONE (22:55)
[2025-05-13 23:34] LABS: CALCIUM LEVEL 7.1 MG/DL (8.5-10.1); CARBON DIOXIDE LEVEL 24 MMOL/L (20-31); CHLORIDE LEVEL 108 MMOL/L (98-107); CREATININE FOR GFR 0.48 MG/DL (0.55-1.30); GLOMERULAR FILTRATION RATE > 90.0 (>58); MAGNESIUM LEVEL 1.9 MG/DL (1.8-2.4); POTASSIUM SERUM 3.9 MMOL/L (3.5-5.1); SODIUM LEVEL 141 MMOL/L (136-145)
[2025-05-14] VITALS (37 sets, daily range): BP systolic 98–136; BP diastolic 55–74; TEMP 97.2–99; O2SAT 94–100
[2025-05-14 00:10] LABS: HEPATITIS C VIRUS ABY INDEX 0.05 INDEX (<0.8)
[2025-05-14] MEDS: CALCIUM GLUCONATE 1,000 MG in DEXTROSE 5% (D5W) MINI-BAG PLU 100 ML IV ONE (00:48)
[2025-05-14 05:48] LABS: PLATELET COUNT, AUTOMATED 156 10^3/uL (150-450)
[2025-05-14 06:15] LABS: ALT/SGPT 146 U/L (7.0-40); AST/SGOT 188 U/L (<34); CALCIUM LEVEL 7.1 MG/DL (8.5-10.1); CARBON DIOXIDE LEVEL 26 MMOL/L (20-31); CHLORIDE LEVEL 108 MMOL/L (98-107); CREATININE FOR GFR 0.49 MG/DL (0.55-1.30); GLOMERULAR FILTRATION RATE > 90.0 (>58); MAGNESIUM LEVEL 1.6 MG/DL (1.8-2.4); POTASSIUM SERUM 3.4 MMOL/L (3.5-5.1); SODIUM LEVEL 142 MMOL/L (136-145)
[2025-05-14] MEDS: FOLIC ACID 1 MG TAB PO SCH (09:07)
[2025-05-14] MEDS: THIAMINE 100 MG TAB PO SCH (09:07)
[2025-05-14] MEDS: OMEPRAZOLE 20MG CAP PO SCH (09:07)
[2025-05-14] MEDS: buPROPion **SR** 150 MG TABLET PO SCH (09:07)
[2025-05-14] MEDS: DOCUSATE SODIUM 100 MG CAPSULE PO SCH (09:07)
[2025-05-14] MEDS: MULTIVITAMINS/MINERALS THERAP 1 TAB PO SCH (09:07)
[2025-05-14] MEDS: ESCITALOPRAM OXALATE 10 MG TABLET PO SCH (09:07)
[2025-05-14 10:08] LABS: CALCIUM LEVEL 7.2 MG/DL (8.5-10.1); CARBON DIOXIDE LEVEL 26 MMOL/L (20-31); CHLORIDE LEVEL 105 MMOL/L (98-107); CREATININE FOR GFR 0.47 MG/DL (0.55-1.30); GLOMERULAR FILTRATION RATE > 90.0 (>58); POTASSIUM SERUM 3.3 MMOL/L (3.5-5.1); SODIUM LEVEL 141 MMOL/L (136-145)
[2025-05-14 10:57] LABS: LDH LACTATE DEHYDROGENASE 277 U/L (120-246)
[2025-05-14 10:59] LABS: ALT/SGPT 143 U/L (7.0-40); AST/SGOT 181 U/L (<34); MAGNESIUM LEVEL 1.6 MG/DL (1.8-2.4)
[2025-05-14] MEDS ORDERED: IRON SUCROSE 100 MG/5 ML VIAL IV SCH (11:50)
[2025-05-14] MEDS: FUROSEMIDE 20 MG/2 ML VIAL IV ONE (11:59)
[2025-05-14] MEDS: POTASSIUM CHLORIDE 10MEQ SR TABLET PO ONE (11:59)
[2025-05-14] MEDS: MAG SULF 1GM/100ML (MAG RUN) 1 GM in IV 1 EA IV SCH (12:01)
[2025-05-14] MEDS: FERRIC CARBOXYMALTOSE INJ 750 MG, VIAL MATE ADAPTER 1 EACH in NS 100 ML IV ONE (14:22)
[2025-05-14 16:36] LABS: CALCIUM LEVEL 6.9 MG/DL (8.5-10.1); CARBON DIOXIDE LEVEL 24 MMOL/L (20-31); CHLORIDE LEVEL 109 MMOL/L (98-107); CREATININE FOR GFR 0.48 MG/DL (0.55-1.30); GLOMERULAR FILTRATION RATE > 90.0 (>58); POTASSIUM SERUM 3.3 MMOL/L (3.5-5.1); SODIUM LEVEL 143 MMOL/L (136-145)
[2025-05-14] MEDS: ACETAMINOPHEN 325 MG TAB PO PRN (21:39)
[2025-05-15 03:13] VITALS: BP 122/58; TEMP 97.6; O2SAT 98
[2025-05-15 04:08] VITALS: O2SAT 98
[2025-05-15 04:16] LABS: CALCIUM LEVEL 7.6 MG/DL (8.5-10.1); CARBON DIOXIDE LEVEL 28 MMOL/L (20-31); CHLORIDE LEVEL 108 MMOL/L (98-107); CREATININE FOR GFR 0.48 MG/DL (0.55-1.30); GLOMERULAR FILTRATION RATE > 90.0 (>58); POTASSIUM SERUM 3.6 MMOL/L (3.5-5.1); SODIUM LEVEL 143 MMOL/L (136-145)
[2025-05-15 05:00] VITALS: BP 122/58
[2025-05-15 07:55] VITALS: BP 125/71; TEMP 98; O2SAT 98
[2025-05-15 08:00] VITALS: BP 125/71
[2025-05-15] MEDS: PANTOPRAZOLE 40MG VIAL IV SCH (09:29)
[2025-05-15 10:57] LABS: BASO # 0.1 10^3/uL (0.0-0.2); BASO % 0.7 % (0.0-1.0); EOS # 0.3 10^3/uL (0.0-0.5); EOS % 3.6 % (0.0-3.0); LYMPH # 1.0 10^3/uL (1.5-5.0); LYMPH % 14.3 % (24.0-44.0); MONO # 0.8 10^3/uL (0.0-0.8); MONO % 11.0 % (2.0-8.0); NEUTROPHILS # 4.8 10^3/uL (1.5-8.5); NEUTROPHILS % 68.7 % (36.0-66.0); PLATELET COUNT, AUTOMATED 166 10^3/uL (150-450)
[2025-05-15 11:24] LABS: ALT/SGPT 121 U/L (7.0-40); AST/SGOT 116 U/L (<34); CALCIUM LEVEL 8.0 MG/DL (8.5-10.1); CARBON DIOXIDE LEVEL 26 MMOL/L (20-31); CHLORIDE LEVEL 109 MMOL/L (98-107); CREATININE FOR GFR 0.46 MG/DL (0.55-1.30); GLOMERULAR FILTRATION RATE > 90.0 (>58); POTASSIUM SERUM 3.2 MMOL/L (3.5-5.1); SODIUM LEVEL 144 MMOL/L (136-145)
[2025-05-15] MEDS ORDERED: THIA100TA PO (11:34)
[2025-05-15] MEDS ORDERED: THERTAB19 PO (11:35)
[2025-05-15] MEDS ORDERED: DOXY-440 PO (11:35)
[2025-05-15] MEDS ORDERED: AUGM500T34 PO (11:53)
[2025-05-15 12:00] VITALS: BP 113/63; TEMP 98.4; O2SAT 99
[2025-05-15] MEDS: POTASSIUM CHLORIDE 10% LIQ 20MEQ/15ML UDC PO ONE (12:06)
[2025-05-15] MEDS ORDERED: AMOX875T2 PO (14:34)
[2025-05-15] MEDS ORDERED: FERR325T3 PO (14:34)
[2025-05-16] MEDS ORDERED: LEVO1TAB40 PO (15:14)
== END 2025-05-15 17:05 | disposition home health service (06) | DRG 812 ==
LOC: M ED 14:14 → EEVIPCON 21:53 → M ED INP 21:53 → M PCU 05-14 01:50
PROVIDERS: ADMIT Student in an Organized Health Care Education/Training Program; ATTEND Student in an Organized Health Care Education/Training Program
PROC: 30233N1 Transfusion of Nonautologous Red Blood Cells into Peripheral Vein, Percutaneous Approach (ICD-10-PCS; principal; 2025-05-14)
DX: D50.9 Iron deficiency anemia, unspecified (principal); L97.829 Non-pressure chronic ulcer of other part of left lower leg with unspecified severity; K91.2 Postsurgical malabsorption, not elsewhere classified; I10 Essential (primary) hypertension; E87.6 Hypokalemia; E87.70 Fluid overload, unspecified; E27.8 Other specified disorders of adrenal gland; Z98.84 Bariatric surgery status; K21.9 Gastro-esophageal reflux disease without esophagitis; F17.200 Nicotine dependence, unspecified, uncomplicated; F10.10 Alcohol abuse, uncomplicated; K76.0 Fatty (change of) liver, not elsewhere classified; B95.62 Methicillin resistant Staphylococcus aureus infection as the cause of diseases classified elsewhere; F32.A Depression, unspecified; F41.9 Anxiety disorder, unspecified; F12.90 Cannabis use, unspecified, uncomplicated; Z79.899 Other long term (current) drug therapy; Z88.2 Allergy status to sulfonamides

== ENCOUNTER → 2025-05-31 | Outpatient (REF) | payer MEDICARE, MEDICAID ==
[~2025-05-31] MED LIST changes: +AMOX875T2 PO; +AUGM500T34 PO; +DOXY-440 PO; +FERR325T3 PO; +LEVO1TAB40 PO; +THERTAB19 PO; +THIA100TA PO
[2025-05-31 18:16] LABS: IRON (FE) 59 UG/DL (50-170); PERCENT SATURATION 14.8 % (13.2-45.0)
[2025-05-31 18:17] LABS: ALT/SGPT 27 U/L (7.0-40); AST/SGOT 33 U/L (<34); BASO # 0.1 10^3/uL (0.0-0.2); BASO % 1.4 % (0.0-1.0); CALCIUM LEVEL 8.4 MG/DL (8.5-10.1); CARBON DIOXIDE LEVEL 25 MMOL/L (20-31); CHLORIDE LEVEL 109 MMOL/L (98-107); CREATININE FOR GFR 0.49 MG/DL (0.55-1.30); EOS # 0.2 10^3/uL (0.0-0.5); EOS % 3.0 % (0.0-3.0); GLOMERULAR FILTRATION RATE > 90.0 (>58); LYMPH # 2.7 10^3/uL (1.5-5.0); LYMPH % 36.5 % (24.0-44.0); MONO # 0.8 10^3/uL (0.0-0.8); MONO % 10.9 % (2.0-8.0); NEUTROPHILS # 3.5 10^3/uL (1.5-8.5); NEUTROPHILS % 47.9 % (36.0-66.0); PLATELET COUNT, AUTOMATED 265 10^3/uL (150-450); POTASSIUM SERUM 4.3 MMOL/L (3.5-5.1); SODIUM LEVEL 143 MMOL/L (136-145)
== END ==
LOC: M LAB REF 16:21
PROVIDERS: ATTEND Nurse Practitioner Family
DX: D50.9 Iron deficiency anemia, unspecified (principal); R74.01 Elevation of levels of liver transaminase levels

== ENCOUNTER 2025-07-14 02:33 | Emergency (ER) | payer MEDICARE, MEDICAID ==
[~2025-07-14] VITALS: Ht 172.7 cm; Wt 74.1 kg
[2025-07-14 02:42] VITALS: BP 126/78; TEMP 98.2; O2SAT 99
[2025-07-14 03:37] LABS: BASO # 0.1 10^3/uL (0.0-0.2); BASO % 1.2 % (0.0-1.0); EOS # 0.2 10^3/uL (0.0-0.5); EOS % 3.5 % (0.0-3.0); LYMPH # 1.5 10^3/uL (1.5-5.0); LYMPH % 26.3 % (24.0-44.0); MONO # 0.7 10^3/uL (0.0-0.8); MONO % 11.9 % (2.0-8.0); NEUTROPHILS # 3.3 10^3/uL (1.5-8.5); NEUTROPHILS % 56.8 % (36.0-66.0); PLATELET COUNT, AUTOMATED 148 10^3/uL (150-450)
[2025-07-14 03:47] LABS: INR 0.92
[2025-07-14 03:55] LABS: CK-MB VALUE MASS 2.0 NG/ML (<3.6)
[2025-07-14 03:57] LABS: CPK CREATINE PHOSPHOKINASE 143 U/L (34-145); MB/CK RELATIVE INDEX 1.39 (< OR =4)
[2025-07-14 03:58] LABS: ALT/SGPT 318 U/L (7.0-40); AST/SGOT 709 U/L (<34); CALCIUM LEVEL 8.8 MG/DL (8.5-10.1); CARBON DIOXIDE LEVEL 24 MMOL/L (20-31); CHLORIDE LEVEL 109 MMOL/L (98-107); CREATININE FOR GFR 0.45 MG/DL (0.55-1.30); GLOMERULAR FILTRATION RATE > 90.0 (>58); POTASSIUM SERUM 3.4 MMOL/L (3.5-5.1); SODIUM LEVEL 143 MMOL/L (136-145)
== END 2025-07-14 04:12 | disposition left against medical advice (07) ==
LOC: M ED 02:33
DX: Z53.21 Procedure and treatment not carried out due to patient leaving prior to being seen by health care provider (principal)

== ENCOUNTER 2025-09-12 23:48 | Emergency (ER) | payer OTHER, MEDICARE, MEDICAID ==
[~2025-09-12] VITALS: Ht 172.7 cm; Wt 75.5 kg
[2025-09-13] MEDS ORDERED: RALTEGRAVIR 400 MG TAB PO SCH
[2025-09-13 02:43] LABS: ETHYL ALCOHOL (ETHANOL) 0.250 % (0.000-0.010)
[2025-09-13 03:17] LABS: HIV 1&2 SCREEN NEGATIVE (NEGATIVE)
[2025-09-13 03:46] LABS: Trichomonas vaginalis (AMP) NOT DETECTED (NEGATIVE)
[2025-09-13 04:09] LABS: GC DNA AMPLIFICATION NEGATIVE (NEGATIVE)
[2025-09-13] MEDS ORDERED: EXPOSURE KIT-ADULT 7 DAY SUPPLY PO ONE (04:20)
[2025-09-13] MEDS: NICOTINE 14 MG/24 HR TRANSDERMAL TD ONE (05:20)
[2025-09-13] MEDS: ACETAMINOPHEN 325 MG TAB PO ONE (05:21)
[2025-09-13] MEDS: IBUPROFEN 600 MG TAB PO ONE (05:22)
[2025-09-13] MEDS: AZITHROMYCIN 250 MG TABLET PO ONE (08:51)
[2025-09-13] MEDS: ULIPRISTAL ACETATE 30 MG TAB PO ONE (08:51)
[2025-09-13] MEDS: DOXYCYCLINE HYCLATE 100 MG TABLET PO ONE (08:51)
[2025-09-13] MEDS: RALTEGRAVIR 400 MG TAB PO ONE (08:52)
[2025-09-13] MEDS: LIDOCAINE 1% SDV 5 ML VIAL DILUENT ONE (09:02)
[2025-09-13] MEDS: cefTRIAXone 500 MG VIAL IM ONE (09:03)
[2025-09-13] MEDS ORDERED: EMTR1TAB16 PO (09:18)
[2025-09-13] MEDS ORDERED: DOXY-442 PO (09:18)
[2025-09-13] MEDS ORDERED: RALT40TA PO (09:18)
[2025-09-13 09:26] LABS: BASO # 0.1 10^3/uL (0.0-0.2); BASO % 0.6 % (0.0-1.0); EOS # 0.1 10^3/uL (0.0-0.5); EOS % 0.5 % (0.0-3.0); LYMPH # 1.1 10^3/uL (1.5-5.0); LYMPH % 10.9 % (24.0-44.0); MONO # 1.2 10^3/uL (0.0-0.8); MONO % 11.7 % (2.0-8.0); NEUTROPHILS # 7.7 10^3/uL (1.5-8.5); NEUTROPHILS % 75.7 % (36.0-66.0); PLATELET COUNT, AUTOMATED 168 10^3/uL (150-450)
[2025-09-13] MEDS: TETANUS/DIPHTH/ACEL. PERTUSSIS 0.5 ML SYR IM.IMMUN ONE (09:33)
[2025-09-13 09:42] VITALS: BP 159/90; TEMP 96.4; O2SAT 94
[2025-09-13 09:50] LABS: CALCIUM LEVEL 8.4 MG/DL (8.5-10.1); CARBON DIOXIDE LEVEL 26 MMOL/L (20-31); CHLORIDE LEVEL 103 MMOL/L (98-107); CREATININE FOR GFR 0.42 MG/DL (0.55-1.30); GLOMERULAR FILTRATION RATE > 90.0 (>58); MAGNESIUM LEVEL 2.0 MG/DL (1.8-2.4); POTASSIUM SERUM 4.0 MMOL/L (3.5-5.1); SODIUM LEVEL 139 MMOL/L (136-145)
[2025-09-13 09:58] LABS: HEPATITIS B SURFACE ANTIBODY NEGATIVE (POSITIVE)
[2025-09-13 10:00] LABS: AMPHETAMINES LEVEL URINE NEGATIVE (NEGATIVE); BARBITURATES URINE NEGATIVE (NEGATIVE); BENZODIAZEPINES URINE NEGATIVE (NEGATIVE); COCAINE METABOLITE URINE NEGATIVE (NEGATIVE); METHADONE URINE NEGATIVE (NEGATIVE); OPIATES URINE NEGATIVE (NEGATIVE); PHENCYCLIDINE URINE NEGATIVE (NEGATIVE)
[2025-09-13 10:01] LABS: CANNABINOIDS URINE POSITIVE (NEGATIVE)
[2025-09-13 10:31] LABS: HEPATITIS C VIRUS ABY INDEX 0.05 INDEX (<0.8)
== END 2025-09-13 09:47 | disposition home or self-care (01) ==
LOC: M ED 23:48 → EDBD 23:48 → M ED 09-13 09:47
DX: T76.21XA Adult sexual abuse, suspected, initial encounter (principal); F19.10 Other psychoactive substance abuse, uncomplicated; F17.200 Nicotine dependence, unspecified, uncomplicated; R51.9 Headache, unspecified; K21.9 Gastro-esophageal reflux disease without esophagitis; F41.9 Anxiety disorder, unspecified; F32.A Depression, unspecified; F10.10 Alcohol abuse, uncomplicated; Z88.2 Allergy status to sulfonamides; Z79.899 Other long term (current) drug therapy
CPT/HCPCS: 80048; 80307; 82077; 83735; 85025; 86706; 86780; 86803; 87389; 87661; 87810; 87850; 96372; 99284; J0696